=== PATIENT | male | born 1965 ===

== ENCOUNTER 2019-10-09 01:32 | Inpatient (IN) | payer BC ==
[2019-10-09] MEDS ORDERED: SODIUM CHLORIDE 0.9% 500 ML 500 ML IV ONE (01:58)
[2019-10-09] MEDS ORDERED: SODIUM CHLORIDE 0.9% 1,000 ML IV ONE (01:58)
[2019-10-09 02:04] LABS: Glucose,Whole Blood >600 mg/dL (75-99)
--- NOTE | 2019-10-09 02:07 | ED ---
General Adult HPI - General Chief complaint: Dizziness Stated complaint: Dizziness Time Seen by Provider: 10/09/19 01:48 Source: patient, family Limitations: no limitations - History of Present Illness Initial comments: 54-year-old male patient presents to the emergency department today for evaluation of dizziness. Patient states that for the last 3 weeks he has been persistently dizzy. States spells several times daily. States it is worse when he is at work. States that he has also been experiencing extremely dry mouth, frequent urination, and extreme thirst. Patient states that he has been feeling run down and more weak than usual. States is difficult to do his job. Patient states that he has not seen a physician for the last 30 years and does not take any medications. He denies any headache or recent head injury. Denies chest pain, shortness of breath, nausea, or vomiting. Denies numbness, tingling, weakness to his extremities. Does have a family history of diabetes. Patient denies any recent rash, fever, chills, diarrhea, constipation, back pain, hem aturia, dysuria, urinary urgency, or any other complaints. - Related Data Allergies Allergy/AdvReac Type Severity Reaction Status Date / Time No Known Allergies Allergy Verified 10/09/19 01:41 Review of Systems ROS Statement: Those systems with pertinent positive or pertinent negative responses have been documented in the HPI. ROS Other: All systems not noted in ROS Statement are negative. Past Medical History Past Medical History: No Reported History History of Any Multi-Drug Resistant Organisms: None Reported Past Surgical History: No Surgical Hx Reported Past Psychological History: No Psychological Hx Reported Smoking Status: Former smoker Past Alcohol Use History: Occasional Past Drug Use History: Marijuana General Exam Limitations: no limitations General appearance: alert, in no apparent distress, other (This is a well- developed, well-nourished adult male patient in no acute distress. Vital signs upon presentation are temperature 99.3F, pulse 119, respirations 20, blood pressure 152/97, pulse ox 99% on room air.) Eye exam: Present: normal appearance, PERRL, EOMI. Absent: scleral icterus, conjunctival injection, periorbital swelling ENT exam: Present: normal exam, normal oropharynx, mucous membranes moist Respiratory exam: Present: normal lung sounds bilaterally. Absent: respiratory distress, wheezes, rales, rhonchi, stridor Cardiovascular Exam: Present: normal rhythm, tachycardia, normal heart sounds. Absent: systolic murmur, diastolic murmur, rubs, gallop, clicks GI/Abdominal exam: Present: soft, normal bowel sounds. Absent: distended, tenderness, guarding, rebound, rigid Neurological exam: Present: alert, oriented X3, CN II-XII intact Expanded Speech: Present: fluid speech Cranial nerves: EOM's Intact: Normal Motor strength exam: RUE: 5, LUE: 5, RLE: 5, LLE: 5 Psychiatric exam: Present: normal affect, normal mood Skin exam: Present: warm, dry, intact, normal color. Absent: rash Course Vital Signs 10/09/19 01:36 Temperature 99.3 F Pulse Rate 119 H Respiratory 20 Rate Blood Pressure 152/97 O2 Sat by Pulse 99 Oximetry EKG Findings - EKG Comments: EKG Findings:: EKG obtained at 0159 shows sinus tachycardia at a ventricular rate of 117, IN interval 140, QRS duration 96, QT 338, QTC 471. No evidence of ST elevation or depression. Medical Decision Making - Medical Decision Making 54-year-old male patient presents to the emergency department today for evaluation of dizzy episodes, reports of increased thirst, frequent urination, and feeling generally rundown. Physical examination is unremarkable. He is neurologically intact with no focal deficits. Initial blood glucose reading was high on her monitor. Labs reviewed and did reveal elevated blood sugar at 758. Potassium and magnesium are normal. Patient was started on IV fluids. Will start insulin drip. He'll be admitted to the hospital for further evaluation and management of his new onset diabetes. - Lab Data Result diagrams: 10/09/19 02:13 10/09/19 02:13 Lab Results 10/09/19 10/09/19 10/09/19 Range/Units 02:01 02:13 02:13 WBC 9.8 (3.8-10.6) k/uL RBC 5.59 (4.30-5.90) m/uL Hgb 16.8 (13.0-17.5) gm/dL Hct 50.1 (39.0-53.0) % MCV 89.5 (80.0-100.0) fL MCH 30.1 (25.0-35.0) pg MCHC 33.6 (31.0-37.0) g/dL RDW 12.6 (11.5-15.5) % Plt Count 332 (150-450) k/uL Neutrophils % 65 % Lymphocytes % 25 % Monocytes % 6 % Eosinophils % 1 % Basophils % 1 % Neutrophils # 6.4 (1.3-7.7) k/uL Lymphocytes # 2.4 (1.0-4.8) k/uL Monocytes # 0.6 (0-1.0) k/uL Eosinophils # 0.1 (0-0.7) k/uL Basophils # 0.1 (0-0.2) k/uL Sodium 127 L (137-145) mmol/L Potassium 4.0 (3.5-5.1) mmol/L Chloride 90 L (98-107) mmol/L Carbon Dioxide 18 L (22-30) mmol/L Anion Gap 19 mmol/L BUN 14 (9-20) mg/dL Creatinine 0.89 (0.66-1.25) mg/dL Est GFR (CKD-EPI)AfAm >90 (>60 ml/min/1.73 sqM) Est GFR (CKD-EPI)NonAf >90 (>60 ml/min/1.73 sqM) Glucose 758 H* (74-99) mg/dL POC Glucose (mg/dL) >600 H (75-99) mg/dL POC Glu Adolescent Counselor ID Eliza Davidson Calcium 10.3 H (8.4-10.2) mg/dL Phosphorus 3.5 (2.5-4.5) mg/dL Magnesium 2.0 (1.6-2.3) mg/dL Total Bilirubin 1.7 H (0.2-1.3) mg/dL AST 29 (17-59) U/L ALT 43 (4-49) U/L Alkaline Phosphatase 217 H (38-126) U/L Troponin I (0.000-0.034) ng/mL Total Protein 7.3 (6.3-8.2) g/dL Albumin 4.4 (3.5-5.0) g/dL Acetone, Qual Positive (Negative) 10/09/19 Range/Units 02:13 WBC (3.8-10.6) k/uL RBC (4.30-5.90) m/uL Hgb (13.0-17.5) gm/dL Hct (39.0-53.0) % MCV (80.0-100.0) fL MCH (25.0-35.0) pg MCHC (31.0-37.0) g/dL RDW (11.5-15.5) % Plt Count (150-450) k/uL Neutrophils % % Lymphocytes % % Monocytes % % Eosinophils % % Basophils % % Neutrophils # (1.3-7.7) k/uL Lymphocytes # (1.0-4.8) k/uL Monocytes # (0-1.0) k/uL Eosinophils # (0-0.7) k/uL Basophils # (0-0.2) k/uL Sodium (137-145) mmol/L Potassium (3.5-5.1) mmol/L Chloride (98-107) mmol/L Carbon Dioxide (22-30) mmol/L Anion Gap mmol/L BUN (9-20) mg/dL Creatinine (0.66-1.25) mg/dL Est GFR (CKD-EPI)AfAm (>60 ml/min/1.73 sqM) Est GFR (CKD-EPI)NonAf (>60 ml/min/1.73 sqM) Glucose (74-99) mg/dL POC Glucose (mg/dL) (75-99) mg/dL POC Glu Adolescent Counselor ID Calcium (8.4-10.2) mg/dL Phosphorus (2.5-4.5) mg/dL Magnesium (1.6-2.3) mg/dL Total Bilirubin (0.2-1.3) mg/dL AST (17-59) U/L ALT (4-49) U/L Alkaline Phosphatase (38-126) U/L Troponin I <0.012 (0.000-0.034) ng/mL Total Protein (6.3-8.2) g/dL Albumin (3.5-5.0) g/dL Acetone, Qual (Negative) Disposition Clinical Impression: New onset type 2 diabetes mellitus, DKA (diabetic ketoacidoses) Disposition: ADMITTED IP TO THIS [facility] Condition: Serious Referrals: None,Stated [Primary Care Provider] - 1-2 days Decision to Admit Reason: Admit from EC Decision Date: 10/09/19 Decision Time: 03:07
[2019-10-09 02:20] LABS: Basophils # (A) 0.1 k/uL (0-0.2); Basophils % (A) 1 %; Eosinophils # (A) 0.1 k/uL (0-0.7); Eosinophils % (A) 1 %; HCT 50.1 % (39.0-53.0); HGB 16.8 gm/dL (13.0-17.5); Lymphocytes # (A) 2.4 k/uL (1.0-4.8); Lymphocytes % (A) 25 %; MCH 30.1 pg (25.0-35.0); MCHC 33.6 g/dL (31.0-37.0); MCV 89.5 fL (80.0-100.0); Mean Platelet Volume 7.6; Monocytes # (A) 0.6 k/uL (0-1.0); Monocytes % (A) 6 %; Neutrophils # (A) 6.4 k/uL (1.3-7.7); Neutrophils % (A) 65 %; Platelet Count 332 k/uL (150-450); RBC 5.59 m/uL (4.30-5.90); RDW 12.6 % (11.5-15.5); WBC 9.8 k/uL (3.8-10.6)
[2019-10-09 02:33] LABS: ALT 43 U/L (4-49); AST 29 U/L (17-59); African American GFR (CKD) >90 (>60 ml/min/1.73 sqM); Albumin 4.4 g/dL (3.5-5.0); Alkaline Phosphatase 217 U/L (38-126); Anion Gap 19 mmol/L; Blood Urea Nitrogen 14 mg/dL (9-20); Calcium 10.3 mg/dL (8.4-10.2); Carbon Dioxide 18 mmol/L (22-30); Chloride 90 mmol/L (98-107); Non-African American GFR(CKD) >90 (>60 ml/min/1.73 sqM); Phosphorus 3.5 mg/dL (2.5-4.5); Sodium 127 mmol/L (137-145); Total Bilirubin 1.7 mg/dL (0.2-1.3); Total Protein 7.3 g/dL (6.3-8.2)
[2019-10-09 02:48] LABS: Glucose 758 mg/dL (74-99)
[2019-10-09] MEDS ORDERED: INSULIN REGULAR BOLUS (FROM DRIP BAG) IV ONE (02:58)
[2019-10-09 03:22] LABS: Appearance,Urine Clear (Clear); Bilirubin,Urine Negative (Negative); Blood,Urine Negative (Negative); Color,Urine Yellow; Glucose,Urine (UA) 3+ (Negative); Ketones,Urine 2+ (Negative); Nitrite,Urine Negative (Negative); Protein,Urine Negative (Negative); Specific Gravity,Urine 1.005 (1.001-1.035); Urobilinogen,Urine <2.0 mg/dL (<2.0)
[2019-10-09 03:26] LABS: Leukocyte Esterase,Urine Negative (Negative)
[2019-10-09 03:27] LABS: Glucose,Whole Blood >600 mg/dL (75-99)
[2019-10-09] MEDS: SODIUM CHLORIDE 0.9% 1,000 ML IV SCH ×4 (03:39→17:10)
[2019-10-09] MEDS: INSULIN REGULAR 100 UNIT in SODIUM CHLORIDE 0.9% 100 ML IV SCH ×2 (03:40→15:57)
[2019-10-09 04:02] LABS: Glucose,Whole Blood 544 mg/dL (75-99)
[2019-10-09 04:13] LABS: Glucose,Whole Blood 484 mg/dL (75-99)
[2019-10-09 04:49] LABS: African American GFR (CKD) >90 (>60 ml/min/1.73 sqM); Anion Gap 11 mmol/L; Blood Urea Nitrogen 13 mg/dL (9-20); Carbon Dioxide 22 mmol/L (22-30); Chloride 100 mmol/L (98-107); Glucose 484 mg/dL (74-99); Non-African American GFR(CKD) >90 (>60 ml/min/1.73 sqM); Phosphorus 3.3 mg/dL (2.5-4.5); Potassium 3.8 mmol/L (3.5-5.1); Sodium 133 mmol/L (137-145)
[2019-10-09 05:10] LABS: Glucose,Whole Blood 382 mg/dL (75-99)
[2019-10-09 06:09] LABS: Glucose,Whole Blood 326 mg/dL (75-99)
[2019-10-09 07:04] LABS: Glucose,Whole Blood 241 mg/dL (75-99)
[2019-10-09] MEDS: D5-0.45% NACL WITH KCL 20MEQ/L 1,000 ML IV SCH ×2 (07:10→15:57)
[2019-10-09 08:49] LABS: Glucose,Whole Blood 203 mg/dL (75-99)
[2019-10-09 08:53] LABS: African American GFR (CKD) >90 (>60 ml/min/1.73 sqM); Anion Gap 7 mmol/L; Blood Urea Nitrogen 12 mg/dL (9-20); Carbon Dioxide 24 mmol/L (22-30); Chloride 107 mmol/L (98-107); Glucose 164 mg/dL (74-99); Non-African American GFR(CKD) >90 (>60 ml/min/1.73 sqM); Potassium 3.4 mmol/L (3.5-5.1); Sodium 138 mmol/L (137-145)
[2019-10-09] MEDS ORDERED: FAMOTIDINE 20 MG/2 ML VIAL IV SCH (09:00)
--- NOTE | 2019-10-09 09:13 | P.HPIM ---
History of Present Illness This is a pleasant 54 years old male with no significant past medical history. Presents because of dizziness for 2-3 weeks, patient also passed out at his work about 2 weeks ago Associated with polyuria, polydipsia and dry mouth. However patient denies chest pain or dyspnea. No abdominal pain. No nausea vomiting. No change in bowel habits. No fever He does not follow up with primary care doctor, he is supposed to follow-up with a new primary care doctor this week however he came to the hospital He denies smoking or alcohol or drugs, he quit smoking marijuana about 2 months ago Patient is tachycardic, heart rate is 101-118, rest of vitals are stable. On admission his anion gap was elevated at 19, it came down to 7. Sugar was more than 600 on admission currently 203. Personal BMP is unremarkable, liver enzymes not elevated, troponin less than 0.012. CBC is unremarkable. Urinalysis doesn't show infection. Acetone is positive. EKG shows sinus tachycardia at [address]-T changes, Patient was admitted to the ICU with insulin drip per protocol, also has a normal saline at 200 mL per hour Review of Systems CONSTITUTIONAL: No fever, no malaise, no fatigue. HEENT: No recent visual problems or hearing problems. Denied any sore throat. CARDIOVASCULAR: No orthopnea, PND, no palpitations, no syncope. PULMONARY: No shortness of breath, no cough, no hemoptysis. GASTROINTESTINAL: No diarrhea, no nausea, no vomiting, no abdominal pain. Normoactive bowel sounds. NEUROLOGICAL: No headaches, no weakness, no numbness. HEMATOLOGICAL: Denies any bleeding or petechiae. GENITOURINARY: Denies any burning micturition, frequency, or urgency. MUSCULOSKELETAL/RHEUMATOLOGICAL: Denies any joint pain, swelling, or any muscle pain. ENDOCRINE: Denies any polyuria or polydipsia. Past Medical History Past Medical History: No Reported History History of Any Multi-Drug Resistant Organisms: None Reported Past Surgical History: No Surgical Hx Reported Past Anesthesia/Blood Transfusion Reactions: No Reported Reaction Past Psychological History: No Psychological Hx Reported Smoking Status: Former smoker Past Alcohol Use History: Occasional Past Drug Use History: Marijuana Medications and Allergies Home Medications Medication Instructions Recorded Confirmed Type Ibuprofen [Advil] 400 mg PO Q8HR PRN 10/09/19 10/09/19 History Multivitamins, Thera [Multivitamin 1 tab PO DAILY 10/09/19 10/09/19 History (formulary)] Tetrahydrozoline 0.05% Ophth 1 drop BOTH EYES QID PRN 10/09/19 10/09/19 History [Visine Eye Drops] Allergies Allergy/AdvReac Type Severity Reaction Status Date / Time tuberculin,PPD,multi-puncture AdvReac ARM Verified 10/09/19 08:36 SWELLING Physical Exam Vitals: Vital Signs Temp Pulse Resp BP Pulse Ox 10/09/19 08:00 98.3 F 101 H 15 125/86 95 10/09/19 07:00 113 H 17 96 10/09/19 06:30 114 H 14 96 10/09/19 06:00 116 H 16 125/86 96 10/09/19 05:30 118 H 20 97 10/09/19 05:00 126 H 11 L 145/103 96 10/09/19 04:30 98.5 F 126 H 19 145/102 97 10/09/19 04:14 124 H 19 10/09/19 03:50 116 H 20 131/94 99 10/09/19 02:35 110 H 19 134/95 98 10/09/19 01:36 99.3 F 119 H 20 152/97 99 Intake and Output 10/08/19 10/09/19 10/09/19 22:59 06:59 14:59 Intake Total 400 34.803 Balance 400 34.803 Intake: Intake, IV Titration 400 34.803 Amount Insulin Regular 100 unit 34.803 In Sodium Chloride 0.9% 100 ml @ 0.1 UNITS/KG/HR 9.85 mls/hr IV .[id number] [facility] Rx#:[id number] Sodium Chloride 0.9% 1, 400 000 ml @ 200 mls/hr IV . Q5H [facility] Rx#:[id number] Other: Voiding Method Toilet Urinal # Voids 1 Weight 97.522 kg GENERAL: The patient is alert and oriented x3, not in any acute distress. Well developed, well nourished. HEENT: Pupils are round and equally reacting to light. EOMI. No scleral icterus. No conjunctival pallor. Normocephalic, atraumatic. No pharyngeal erythema. No thyromegaly. CARDIOVASCULAR: S1 and S2 present. No murmurs, rubs, or gallops. PULMONARY: Chest is clear to auscultation, no wheezing or crackles. ABDOMEN: Soft, nontender, nondistended, normoactive bowel sounds. No palpable organomegaly. MUSCULOSKELETAL: No joint swelling or deformity. EXTREMITIES: No cyanosis, clubbing, or pedal edema. NEUROLOGICAL: Gross neurological examination did not reveal any focal deficits. SKIN: No rashes. No petechiae Results CBC & Chem 7: 10/09/19 02:13 10/09/19 08:22 Labs: Abnormal Lab Results - Last 24 Hours (Table) 10/09/19 10/09/19 10/09/19 Range/Units 02:01 02:13 03:24 Sodium 127 L (137-145) mmol/L Potassium (3.5-5.1) mmol/L Chloride 90 L (98-107) mmol/L Carbon Dioxide 18 L (22-30) mmol/L Glucose 758 H* (74-99) mg/dL POC Glucose (mg/dL) >600 H >600 H (75-99) mg/dL Calcium 10.3 H (8.4-10.2) mg/dL Phosphorus (2.5-4.5) mg/dL Total Bilirubin 1.7 H (0.2-1.3) mg/dL Alkaline Phosphatase 217 H (38-126) U/L 10/09/19 10/09/19 10/09/19 Range/Units 03:58 04:12 04:21 Sodium 133 L (137-145) mmol/L Potassium (3.5-5.1) mmol/L Chloride (98-107) mmol/L Carbon Dioxide (22-30) mmol/L Glucose 484 H (74-99) mg/dL POC Glucose (mg/dL) 544 H 484 H (75-99) mg/dL Calcium (8.4-10.2) mg/dL Phosphorus (2.5-4.5) mg/dL Total Bilirubin (0.2-1.3) mg/dL Alkaline Phosphatase (38-126) U/L 10/09/19 10/09/19 10/09/19 Range/Units 05:08 06:07 07:03 Sodium (137-145) mmol/L Potassium (3.5-5.1) mmol/L Chloride (98-107) mmol/L Carbon Dioxide (22-30) mmol/L Glucose (74-99) mg/dL POC Glucose (mg/dL) 382 H 326 H 241 H (75-99) mg/dL Calcium (8.4-10.2) mg/dL Phosphorus (2.5-4.5) mg/dL Total Bilirubin (0.2-1.3) mg/dL Alkaline Phosphatase (38-126) U/L 10/09/19 10/09/19 10/09/19 Range/Units 08:22 08:22 08:48 Sodium (137-145) mmol/L Potassium 3.4 L (3.5-5.1) mmol/L Chloride (98-107) mmol/L Carbon Dioxide (22-30) mmol/L Glucose 164 H (74-99) mg/dL POC Glucose (mg/dL) 203 H (75-99) mg/dL Calcium (8.4-10.2) mg/dL Phosphorus 2.4 L (2.5-4.5) mg/dL Total Bilirubin (0.2-1.3) mg/dL Alkaline Phosphatase (38-126) U/L Thrombosis Risk Factor Assmnt - Choose All That Apply Any of the Below Risk Factors Present?: Yes Each Factor Represents 1 point: Age 41-60 years, Obesity (BMI >25) Thrombosis Risk Factor Assessment Total Risk Factor Score: 2 Thrombosis Risk Factor Assessment Level: Low Risk Assessment and Plan Assessment: Diabetic ketoacidosis New-onset diabetes mellitus Obesity with BMI of 35 Plan: this is a pleasant 54 years old male who presents with a new-onset diabetes. Continue with insulin drip as per protocol and switched to subcutaneous insulin. Continue with IV hydration. Check hemoglobin A1c. Diabetes education. Special Weapons Unit Officer consult . dairy farm worker consult Labs and medication were reviewed.. Continue same treatment. Continue with symptomatic treatment. Resume home medication. Monitor lytes and vitals. DVT and GI prophylaxis. Further recommendations of the clinical course of the patient DVT prophylaxis: Subcutaneous heparin GI Prophylaxis: Pepcid
[2019-10-09 10:22] LABS: Glucose,Whole Blood 119 mg/dL (75-99)
[2019-10-09] MEDS: HEPARIN SODIUM,PORCINE 5,000 UNIT/ML 1 ML VIAL SQ SCH ×2 (10:26→20:52)
[2019-10-09 11:54] LABS: Glucose,Whole Blood 112 mg/dL (75-99)
[2019-10-09 13:00] LABS: Glucose,Whole Blood 146 mg/dL (75-99)
[2019-10-09 16:52] LABS: Glucose,Whole Blood 247 mg/dL (75-99)
[2019-10-09] MEDS: INSULIN ASPART (NovoLOG) 100 UNIT/ML VIAL SQ SCH ×3 (17:09→21:00)
[2019-10-09] MEDS ORDERED: TETRAHYDROZOLINE 0.05% OPHTH DROPS 15 ML BTL BOTH EYES PRN (20:24)
[2019-10-09] MEDS: FAMOTIDINE 20 MG TAB PO SCH (20:52)
[2019-10-09 20:57] LABS: Glucose,Whole Blood 222 mg/dL (75-99)
[2019-10-09] MEDS ORDERED: INSULIN DETEMIR (LEVEMIR) 100 UNIT/ML SYR SQ SCH (21:00)
[2019-10-10 04:52] LABS: Basophils % (A) 1 %; Eosinophils # (A) 0.4 k/uL (0-0.7); Eosinophils % (A) 5 %; HCT 42.6 % (39.0-53.0); HGB 14.1 gm/dL (13.0-17.5); Lymphocytes # (A) 3.5 k/uL (1.0-4.8); Lymphocytes % (A) 46 %; MCH 29.9 pg (25.0-35.0); MCHC 33.1 g/dL (31.0-37.0); MCV 90.1 fL (80.0-100.0); Mean Platelet Volume 7.1; Monocytes # (A) 0.4 k/uL (0-1.0); Monocytes % (A) 5 %; Neutrophils # (A) 3.1 k/uL (1.3-7.7); Neutrophils % (A) 40 %; Platelet Count 264 k/uL (150-450); RBC 4.72 m/uL (4.30-5.90); RDW 12.9 % (11.5-15.5); WBC 7.6 k/uL (3.8-10.6)
[2019-10-10 05:05] LABS: African American GFR (CKD) >90 (>60 ml/min/1.73 sqM); Anion Gap 5 mmol/L; Blood Urea Nitrogen 10 mg/dL (9-20); Calcium 8.4 mg/dL (8.4-10.2); Carbon Dioxide 23 mmol/L (22-30); Chloride 105 mmol/L (98-107); Glucose 214 mg/dL (74-99); Non-African American GFR(CKD) >90 (>60 ml/min/1.73 sqM); Potassium 3.7 mmol/L (3.5-5.1); Sodium 133 mmol/L (137-145)
[2019-10-10 05:06] LABS: Hemoglobin A1C 14.2 % (4.0-6.0)
[2019-10-10 06:55] LABS: Glucose,Whole Blood 253 mg/dL (75-99)
[2019-10-10] MEDS: INSULIN ASPART (NovoLOG) 100 UNIT/ML VIAL SQ SCH ×7 (06:58→20:44)
[2019-10-10] MEDS: D5-0.45% NACL WITH KCL 20MEQ/L 1,000 ML IV SCH ×2 (07:02→09:16)
[2019-10-10] MEDS: SODIUM CHLORIDE 0.9% 1,000 ML IV SCH ×2 (09:15→09:16)
[2019-10-10] MEDS: HEPARIN SODIUM,PORCINE 5,000 UNIT/ML 1 ML VIAL SQ SCH ×2 (09:21→20:45)
[2019-10-10] MEDS: FAMOTIDINE 20 MG TAB PO SCH ×2 (09:21→20:45)
[2019-10-10 11:50] LABS: Glucose,Whole Blood 239 mg/dL (75-99)
[2019-10-10 17:08] LABS: Glucose,Whole Blood 260 mg/dL (75-99)
--- NOTE | 2019-10-10 19:09 | P.PN ---
Subjective This is a pleasant 54 years old male with no significant past medical history. Presents because of dizziness for 2-3 weeks, patient also passed out at his work about 2 weeks ago Associated with polyuria, polydipsia and dry mouth. However patient denies chest pain or dyspnea. No abdominal pain. No nausea vomiting. No change in bowel habits. No fever He does not follow up with primary care doctor, he is supposed to follow-up with a new primary care doctor this week however he came to the hospital He denies smoking or alcohol or drugs, he quit smoking marijuana about 2 months ago Patient is tachycardic, heart rate is 101-118, rest of vitals are stable. On admission his anion gap was elevated at 19, it came down to 7. Sugar was more than 600 on admission currently 203. Personal BMP is unremarkable, liver enzymes not elevated, troponin less than 0.012. CBC is unremarkable. Urinalysis doesn't show infection. Acetone is positive. EKG shows sinus tachycardia at [address]-T changes, Patient was admitted to the ICU with insulin drip per protocol, also has a normal saline at 200 mL per hour 10/10/2019 Patient remains in the ICU for close monitoring, glucose is better supposed along the 5 sites more than 200, patient was started on Lantus 10 units at bedtime with 5 units 3 times a day, we will increase his Lantus to 25 units at bedtime. Patient told me he injected himself with insulin and is willing to continue with insulin for now and he will follow-up with PCP and billing coordinator as an outpatient. Other than that patient denies any other symptoms no chest pain or dyspnea, no abdominal pain, no nausea vomiting and patient is tolerating diet well. No fever Vitals and labs are stable hemoglobin A1c.14.2 % Patient keep improvement possible discharge in 24-48 hours Patient Transferred out of the ICU for now Review of systems CONSTITUTIONAL: No fever, no malaise, no fatigue. HEENT: No recent visual problems or hearing problems. Denied any sore throat. CARDIOVASCULAR: No orthopnea, PND, no palpitations, no syncope. PULMONARY: No shortness of breath, no cough, no hemoptysis. GASTROINTESTINAL: No diarrhea, no nausea, no vomiting, no abdominal pain. Normoactive bowel sounds. NEUROLOGICAL: No headaches, no weakness, no numbness. HEMATOLOGICAL: Denies any bleeding or petechiae. GENITOURINARY: Denies any burning micturition, frequency, or urgency. MUSCULOSKELETAL/RHEUMATOLOGICAL: Denies any joint pain, swelling, or any muscle pain. ENDOCRINE: Denies any polyuria or polydipsia. Active Medications Generic Name Dose Route Start Last Admin Trade Name Freq PRN Reason Stop Dose Admin Famotidine 20 mg 10/09/19 21:00 10/10/19 09:21 Pepcid PO 20 mg Q12HR [facility] Administration Heparin Sodium (Porcine) 5,000 unit 10/09/19 09:00 10/10/19 09:21 Heparin SQ 5,000 unit Q12HR [facility] Administration Insulin Aspart 5 unit 10/09/19 17:30 10/10/19 17:36 Novolog SQ 5 unit AC-TID [facility] Administration Insulin Aspart 0 unit 10/09/19 17:30 10/10/19 17:37 Novolog SQ 6 unit ACHS [facility] Administration Protocol Insulin Detemir 25 unit 10/10/19 21:00 Levemir SQ HS [facility] Tetrahydrozoline HCl 1 drops 10/09/19 20:24 Visine Eye Drops BOTH EYES QID PRN DRY EYES Objective - Vital Signs Vital signs: Vital Signs Temp 98.4 F 10/10/19 16:00 Pulse 91 10/10/19 16:00 Resp 14 10/10/19 16:00 BP 106/81 10/10/19 16:00 Pulse Ox 95 10/10/19 16:00 Intake & Output 10/10/19 10/10/19 10/11/19 06:59 18:59 06:59 Intake Total 500 Balance 500 Intake: Intake, IV Titration 500 Amount D5-0.45% NaCl with KCl 400 20Meq/l 1,000 ml @ 150 mls/hr IV .[id number] [facility] Rx# :[id number] Sodium Chloride 0.9% 1, 100 000 ml @ 200 mls/hr IV . Q5H [facility] Rx#:[id number] Other: Voiding Method Toilet Toilet # Voids 1 1 - Labs CBC & Chem 7: 10/10/19 03:52 10/10/19 03:52 Labs: Abnormal Lab Results - Last 24 Hours (Table) 10/09/19 10/09/19 10/10/19 Range/Units 02:13 20:56 03:52 Sodium 133 L (137-145) mmol/L Creatinine 0.58 L (0.66-1.25) mg/dL Glucose 214 H (74-99) mg/dL POC Glucose (mg/dL) 222 H (75-99) mg/dL Hemoglobin A1c 14.2 H (4.0-6.0) % 10/10/19 10/10/19 10/10/19 Range/Units 06:53 11:49 17:07 Sodium (137-145) mmol/L Creatinine (0.66-1.25) mg/dL Glucose (74-99) mg/dL POC Glucose (mg/dL) 253 H 239 H 260 H (75-99) mg/dL Hemoglobin A1c (4.0-6.0) % Assessment and Plan Assessment: Diabetic ketoacidosis, resolved New-onset diabetes mellitus with hyperglycemia Obesity with BMI of 35 Plan: this is a pleasant 54 years old male who presents with a new-onset diabetes. Continue with insulin drip as per protocol and switched to subcutaneous insulin. Stop IV hydration. Diabetes education. Agricultural Research Director consult . lead supply worker consult Labs and medication were reviewed.. Continue same treatment. Continue with symptomatic treatment. Resume home medication. Monitor lytes and vitals. DVT and GI prophylaxis. Further recommendations of the clinical course of the patient DVT prophylaxis: Subcutaneous heparin GI Prophylaxis: Pepcid
[2019-10-10 20:37] LABS: Glucose,Whole Blood 262 mg/dL (75-99)
[2019-10-10] MEDS: INSULIN DETEMIR (LEVEMIR) 100 UNIT/ML SYR SQ SCH (20:46)
[2019-10-10] MEDS ORDERED: INSULIN DETEMIR (LEVEMIR) 100 UNIT/ML SYR SQ SCH (21:00)
[2019-10-11 01:46] LABS: Glucose,Whole Blood 108 mg/dL (75-99)
[2019-10-11 06:58] LABS: Glucose,Whole Blood 159 mg/dL (75-99)
[2019-10-11] MEDS: INSULIN ASPART (NovoLOG) 100 UNIT/ML VIAL SQ SCH ×7 (07:03→21:48)
[2019-10-11] MEDS: FAMOTIDINE 20 MG TAB PO SCH ×2 (08:42→21:48)
[2019-10-11] MEDS: HEPARIN SODIUM,PORCINE 5,000 UNIT/ML 1 ML VIAL SQ SCH ×2 (08:43→21:47)
[2019-10-11 11:43] LABS: Glucose,Whole Blood 239 mg/dL (75-99)
[2019-10-11 15:09] VITALS: BMI 37.0
[2019-10-11 16:45] LABS: Glucose,Whole Blood 206 mg/dL (75-99)
[2019-10-11 17:25] VITALS: PULSE 73
--- NOTE | 2019-10-11 19:12 | P.PN ---
Subjective This is a pleasant 54 years old male with no significant past medical history. Presents because of dizziness for 2-3 weeks, patient also passed out at his work about 2 weeks ago Associated with polyuria, polydipsia and dry mouth. However patient denies chest pain or dyspnea. No abdominal pain. No nausea vomiting. No change in bowel habits. No fever He does not follow up with primary care doctor, he is supposed to follow-up with a new primary care doctor this week however he came to the hospital He denies smoking or alcohol or drugs, he quit smoking marijuana about 2 months ago Patient is tachycardic, heart rate is 101-118, rest of vitals are stable. On admission his anion gap was elevated at 19, it came down to 7. Sugar was more than 600 on admission currently 203. Personal BMP is unremarkable, liver enzymes not elevated, troponin less than 0.012. CBC is unremarkable. Urinalysis doesn't show infection. Acetone is positive. EKG shows sinus tachycardia at [address]-T changes, Patient was admitted to the ICU with insulin drip per protocol, also has a normal saline at 200 mL per hour 10/10/2019 Patient remains in the ICU for close monitoring, glucose is better supposed along the 5 sites more than 200, patient was started on Lantus 10 units at bedtime with 5 units 3 times a day, we will increase his Lantus to 25 units at bedtime. Patient told me he injected himself with insulin and is willing to continue with insulin for now and he will follow-up with PCP and automated manufacturing instructor as an outpatient. Other than that patient denies any other symptoms no chest pain or dyspnea, no abdominal pain, no nausea vomiting and patient is tolerating diet well. No fever Vitals and labs are stable hemoglobin A1c.14.2 % Patient keep improvement possible discharge in 24-48 hours Patient Transferred out of the ICU for now 10/11/2019 Patient remains asymptomatic, however his sugar still fluctuation it was close to 100 or slightly above the morning 1-240 in the afternoon, his Levemir was increased to 25 units last night and today we increase his short-acting insulin with meals from 5 up to 10 units with meals. We'll keep monitoring her sugar closely Patient is counseled extensively about the need to recheck his sugar 4 times a day, about the signs symptoms of hypoglycemia, and instructed to come to e mergency room if his sugars less than 70 or more than 400, also is counseled about the importance of follow-up as an outpatient and he verbalized understanding and acceptance. Patient also showed interest in the reading materials and regarding his diabetes. Patient is counseled to lose weight and he agrees. Patient can be transferred out of the ICU to the general medical floor and possible discharge in 24-48 hours and patient agrees Objective - Vital Signs Vital signs: Vital Signs Temp 98.9 F 10/11/19 16:00 Pulse 73 10/11/19 16:00 Resp 17 10/11/19 16:00 BP 132/105 10/11/19 16:00 Pulse Ox 97 10/11/19 16:00 Intake & Output 10/10/19 10/11/19 10/11/19 18:59 06:59 18:59 Intake Total 350 Balance 350 Weight 100.9 kg 100.9 kg Intake: Oral 350 Other: Voiding Method Toilet Toilet Toilet # Voids 1 0 1 - Exam GENERAL: The patient is alert and oriented x3, not in any acute distress. Well developed, well nourished. HEENT: Pupils are round and equally reacting to light. EOMI. No scleral icterus. No conjunctival pallor. Normocephalic, atraumatic. No pharyngeal erythema. No thyromegaly. CARDIOVASCULAR: S1 and S2 present. No murmurs, rubs, or gallops. PULMONARY: Chest is clear to auscultation, no wheezing or crackles. ABDOMEN: Soft, nontender, nondistended, normoactive bowel sounds. No palpable organomegaly. MUSCULOSKELETAL: No joint swelling or deformity. EXTREMITIES: No cyanosis, clubbing, or pedal edema. NEUROLOGICAL: Gross neurological examination did not reveal any focal deficits. SKIN: No rashes. no petechiae. - Labs CBC & Chem 7: 10/10/19 03:52 10/10/19 03:52 Labs: Abnormal Lab Results - Last 24 Hours (Table) 10/10/19 10/11/19 10/11/19 Range/Units 20:35 01:43 06:56 POC Glucose (mg/dL) 262 H 108 H 159 H (75-99) mg/dL 10/11/19 10/11/19 Range/Units 11:42 16:43 POC Glucose (mg/dL) 239 H 206 H (75-99) mg/dL Assessment and Plan Assessment: Diabetic ketoacidosis, resolved New-onset diabetes mellitus with hyperglycemia Obesity with BMI of 35 Plan: this is a pleasant 54 years old male who presents with a new-onset diabetes. Continue with Levemir 25 units increased NovoLog 10 units with meals continue with insulin sliding scale and monitor her glucose. Diabetes education. Pesticide Use Medical Coordinator consult . tiller worker consult Labs and medication were reviewed.. Continue same treatment. Continue with symptomatic treatment. Resume home medication. Monitor lytes and vitals. DVT and GI prophylaxis. Further recommendations of the clinical course of the patient DVT prophylaxis: Subcutaneous heparin GI Prophylaxis: Pepcid Possible discharge in 24-48 hours
[2019-10-11 21:38] LABS: Glucose,Whole Blood 164 mg/dL (75-99)
[2019-10-11] MEDS: INSULIN DETEMIR (LEVEMIR) 100 UNIT/ML SYR SQ SCH (21:49)
[2019-10-12 06:50] LABS: Glucose,Whole Blood 116 mg/dL (75-99)
[2019-10-12 07:12] VITALS: BP 117/82; RESP 18; TEMP 97.9
[2019-10-12] MEDS: INSULIN ASPART (NovoLOG) 100 UNIT/ML VIAL SQ SCH ×4 (07:12→12:19)
[2019-10-12] MEDS: FAMOTIDINE 20 MG TAB PO SCH (08:16)
[2019-10-12] MEDS: HEPARIN SODIUM,PORCINE 5,000 UNIT/ML 1 ML VIAL SQ SCH (08:16)
[2019-10-12 12:02] LABS: Glucose,Whole Blood 173 mg/dL (75-99)
--- NOTE | 2019-10-13 00:14 | P.DS ---
Providers Date of admission: 10/09/19 03:06 Attending physician: Erika Jorge Primary care physician: Jamie Santana Hospital Course: Diagnoses: Diabetic ketoacidosis, resolved New-onset diabetes mellitus with hyperglycemia Obesity with BMI of 35 Hospital course: This is a pleasant 54 years old male with no significant past medical history. Presents because of dizziness for 2-3 weeks, patient also passed out at his work about 2 weeks ago Associated with polyuria, polydipsia and dry mouth. Patient found to have DKA, he was admitted to the ICU penetrated with insulin drip per protocol, his anion gap closed and his symptoms improved and he is back to his normal self. Patient denies any symptoms or complaints for the last 48 hours prior to discharge. Patient is informed and he has diagnosis of diabetes. He is informed to his hemoglobin A1c is 14% and he needs to be and insulin and he agrees. He'll be discharged on 25 units of Levemir at bedtime and 10 units of short-acting insulin with meals. Sugar was controlled. Glucometer is provided for him at bedside. Patient was instructed extensively and educated about diabetes, checking his sugar 4 times a day, hypo-and hyperglycemia diagnoses and management. Problems and management plan were discussed with the patient and he verbalized understanding and acceptance Patient was found stable and can be discharged home however he needs follow-up as an outpatient. Patient was instructed to follow up with PCP within one week and patient agrees. Patient told me he will call Dr. Wheeler by himself to be his new PCP and Dr. 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 Patient Condition at Discharge: Serious Plan - Discharge Summary Discharge Rx Participant: Yes New Discharge Prescriptions: New Insulin Detemir (Levemir) [Levemir] 25 unit SQ HS #1 vial INSULIN ASPART (NovoLOG) [NovoLOG (formulary)] 10 unit SQ AC-TID #1 vial Continue Tetrahydrozoline 0.05% Ophth [Visine Eye Drops] 1 drop BOTH EYES QID PRN PRN Reason: DRY EYES Multivitamins, Thera [Multivitamin (formulary)] 1 tab PO DAILY Discontinued Ibuprofen [Advil] 400 mg PO Q8HR PRN PRN Reason: Pain Discharge Medication List Multivitamins, Thera [Multivitamin (formulary)] 1 tab PO DAILY 08/18/20 [History] Tetrahydrozoline 0.05% Ophth [Visine Eye Drops] 1 drop BOTH EYES QID PRN 10/09/19 [History] INSULIN ASPART (NovoLOG) [NovoLOG (formulary)] 10 unit SQ AC-TID #1 vial 10/12/19 [Rx] Insulin Detemir (Levemir) [Levemir] 25 unit SQ HS #1 vial 10/12/19 [Rx] Follow up Appointment(s)/Referral(s): Rohan Bill MD [REFERRING] - 10 Days (please call for appointment) Boris Miller MD [REFERRING] - 1 Week (endocrinoloigst) [facility] [NON-STAFF] - As Needed Patient Instructions/Handouts: Insulin Detemir (By injection), How to Give a Subcutaneous Injection (DC) Activity/Diet/Wound Care/Special Instructions: low carbohydrate diet activity as tolerated Discharge Disposition: HOME SELF-CARE
--- NOTE | 2019-10-14 16:51 | CDI ---
Documentation Clarification Form Date: 10/14/19 From: Anabell Gomes Phone: If you have a question about this query, please contact Tiff Tavarez Coordinator Of Rehabilitation Services at [phone] between 8am and 5pm. Admit Date: 10/09/19 Discharge Date:10/12/19 Patient Name: Juanito Joe Visit Number: [id number] ATTENTION: The Clinical Documentation Specialists (CDI) and [facility] Coding Staff appreciate your assistance in clarifying documentation. Please respond to the clarification below the line at the bottom and electronically sign. The CDI & [facility] Coding staff will review the response and follow-up if needed. Please note: Queries are made part of the Legal Health Record. If you have any questions, please contact the author of this message via ITS. Dear Dr. Castellanos Documentation states: New onset DM with DKA. H&P has documentation of sodium of 127. History/Risk Factors: DKA Clinical indicators: low sodium Abnormal Lab: Sodium of 127 on admit Treatment: Sodium chloride 2 Liter fluid bolus then at 200 mls/hr Clinical significance of diagnostic testing and treatment CANNOT be assumed or coded without physician documentation of significance if any. Please clarify what abnormal laboratory signifies: Disease process, please specify Abnormal Lab Value Unable to determine Other, please specify false low sodium level due to high glucose in blood , glucose was more than 700 MTDD
== END 2019-10-12 13:07 | disposition home or self-care (01) | DRG 639 ==
LOC: EC 01:32 → 2SICU 03:06
PROVIDERS: ADMIT Hospitalist; ATTEND Hospitalist
DX: E11.10 Type 2 diabetes mellitus with ketoacidosis without coma (principal); E66.9 Obesity, unspecified; Z68.35 Body mass index [BMI] 35.0-35.9, adult; Z87.891 Personal history of nicotine dependence; Z88.8 Allergy status to other drugs, medicaments and biological substances; Z83.3 Family history of diabetes mellitus
CPT/HCPCS: 36415; 80048; 80051; 80053; 81003; 82009; 82565; 82947; 83036; 83735; 84100; 84484; 84520; 85025; 93005; 96360; 96372; 99285

== ENCOUNTER 2022-08-30 12:07 | Observation (INO) | payer BC ==
[2022-08-30] MEDS ORDERED: ONDANSETRON 4 MG/2 ML VIAL IVP STA (12:33)
[2022-08-30] MEDS ORDERED: PANTOPRAZOLE 40 MG/10 ML VIAL IVP STA (12:33)
[2022-08-30] MEDS ORDERED: SODIUM CHLORIDE 0.9% 1,000 ML IV STA (12:33)
[2022-08-30] MEDS ORDERED: HYDROmorphone 1 MG/ML 1 ML SYRINGE IVP STA (12:34)
--- NOTE | 2022-08-30 12:38 | ED ---
Abdominal Pain HPI - General Chief Complaint: Abdominal Pain Stated Complaint: abd pain Time Seen by Provider: 08/30/22 12:18 Source: patient Mode of arrival: ambulatory Limitations: no limitations - History of Present Illness Initial Comments: 57-year-old male with past medical history of diabetes who presents emergency room reporting diffuse abdominal pain. Pain started just prior to hospital arrival. 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 Located in the right upper quadrant but generalized radiation to the whole abd omen. States he has chills and nausea without vomiting. No changes in his bowel or bladder habits. No fevers. Admits pain is similar from when he had abdominal pain in March and was hospitalized for his symptoms. En route to the hospital the patient was given 100 mics of fentanyl and 4 mg of Zofran. States that he was recently placed on Motrin 800s for carpal tunnel in his hands and was also given a steroid shot. No other medication changes. Does admit to occasionally drinking alcohol. No other alleviating, precipitating or modifying factors - Related Data Home Medications Medication Instructions Recorded Confirmed lisinopriL [Zestril] 5 mg PO DAILY 04/10/22 08/30/22 metFORMIN HCL [Glucophage] 500 mg PO DAILY 04/10/22 08/30/22 Ibuprofen [Motrin] 800 mg PO BID PRN 08/30/22 08/30/22 Previous Rx's Medication Instructions Recorded Acetaminophen Tab [Tylenol Tab] 650 mg PO Q4H PRN #30 tablet 09/02/22 Levofloxacin [Levaquin] 500 mg PO DAILY 10 Days #10 tab 09/02/22 metroNIDAZOLE [Flagyl] 500 mg PO TID 10 Days #30 tab 09/02/22 oxyCODONE HCL [OxyIR] 5 mg PO Q6H PRN 3 Days #12 tab 09/02/22 Allergies Allergy/AdvReac Type Severity Reaction Status Date / Time tuberculin,PPD,multi-puncture Allergy ARM Verified 08/30/22 15:41 SWELLING Review of Systems ROS Statement: Those systems with pertinent positive or pertinent negative responses have been documented in the HPI. ROS Other: All systems not noted in ROS Statement are negative. Past Medical History Past Medical History: No Reported History, Diabetes Mellitus History of Any Multi-Drug Resistant Organisms: None Reported Past Surgical History: No Surgical Hx Reported Past Anesthesia/Blood Transfusion Reactions: No Reported Reaction Past Psychological History: No Psychological Hx Reported Smoking Status: Former smoker Past Alcohol Use History: Occasional Past Drug Use History: Marijuana - Past Family History Mother Family Medical History: Diabetes Mellitus, Hypertension Father Family Medical History: Hypertension Sister(s) Family Medical History: No Reported History General Exam Limitations: no limitations General appearance: alert, in no apparent distress Head exam: Present: atraumatic, normocephalic, normal inspection Eye exam: Present: normal appearance, PERRL, EOMI. Absent: scleral icterus, conjunctival injection, periorbital swelling ENT exam: Present: normal exam, mucous membranes moist Neck exam: Present: normal inspection. Absent: tenderness, meningismus, lymphadenopathy Respiratory exam: Present: normal lung sounds bilaterally. Absent: respiratory distress, wheezes, rales, rhonchi, stridor Cardiovascular Exam: Present: regular rate, normal rhythm, normal heart sounds. Absent: systolic murmur, diastolic murmur, rubs, gallop, clicks GI/Abdominal exam: Present: soft, tenderness (Right upper quadrant), normal bowel sounds. Absent: distended, guarding, rebound, rigid Extremities exam: Present: normal inspection, full ROM, normal capillary refill. Absent: tenderness, pedal edema, joint swelling, calf tenderness Back exam: Present: normal inspection Neurological exam: Present: alert, oriented X3, CN II-XII intact Psychiatric exam: Present: normal affect, normal mood Skin exam: Present: warm, dry, intact, normal color. Absent: rash Course Vital Signs 08/30/22 08/30/22 08/30/22 12:14 12:37 12:40 Temperature 97.9 F Pulse Rate 69 62 62 Respiratory 16 24 17 Rate Blood Pressure 166/104 157/96 157/96 O2 Sat by Pulse 100 98 Oximetry 08/30/22 08/30/22 08/30/22 13:20 14:18 16:00 Temperature Pulse Rate 61 59 L 71 Respiratory 21 20 18 Rate Blood Pressure 150/87 145/89 153/98 O2 Sat by Pulse 98 97 Oximetry 08/30/22 08/30/22 08/31/22 20:18 23:00 00:00 Temperature 99.0 F Pulse Rate 70 82 96 Respiratory 22 20 18 Rate Blood Pressure 152/122 155/87 160/92 O2 Sat by Pulse 100 96 Oximetry 08/31/22 08/31/2208/31/23 01:00 02:00 06:00 Temperature Pulse Rate 83 95 79 Respiratory 26 H 12 15 Rate Blood Pressure 137/94 144/99 120/103 O2 Sat by Pulse 98 96 Oximetry 08/31/22 06:09 Temperature 97.9 F Pulse Rate Respiratory Rate Blood Pressure O2 Sat by Pulse Oximetry Medical Decision Making - Medical Decision Making Was pt. sent in by a medical professional or institution (, PA, MAINTENANCE PIPEFITTER, urgent care, hospital, or senior living...) When possible be specific @ -No Did you speak to anyone other than the patient for history (EMS, parent, family, police, friend...)? What history was obtained from this source @ -I spoke with regarding history Did you review nursing and triage notes (agree or disagree)? Why? @ -I reviewed and agree with nursing and triage notes Were old charts reviewed (outside hosp., previous admission, EMS record, old EKG, old radiological studies, urgent care reports/EKG's, senior living records)? Report findings @ -And review the patient's chart from March 2022 when he was here for similar pain Differential Diagnosis (chest pain, altered mental status, abdominal pain women, abdominal pain men, vaginal bleeding, weakness, fever, dyspnea, syncope, heada jesse, dizziness, GI bleed, back pain, seizure, CVA, palpatations, mental health, musculoskeletal)? @ -Differential Abdominal Pain Men: Appendicitis, cholecystitis, diverticulosis, ischemic bowel, pancreatitis, hepatitis, UTI, gastroenteritis, AAA, incarcerated hernia, bowel obstruction, constipation, inflammatory bowel, hepatitis, peptic ulcer disease, splenic infarction, perforated viscus, testicular torsion, this is not meant to be an all-inclusive list EKG interpreted by me (3pts min.). @ -Yes and demonstrates sinus rhythm with a rate of 63. PA interval 127. QRS 102. QTC 442. No acute ST segment elevations or depressions X-rays interpreted by me (1pt min.). @ -None done CT interpreted by me (1pt min.). @ -Yes and demonstrates possible cholecystitis U/S interpreted by me (1pt. min.). @ -Yes and demonstrates cholelithiasis What testing was considered but not performed or refused? (CT, X-rays, U/S, labs)? Why? @ -None What meds were considered but not given or refused? Why? @ -None Did you discuss the management of the patient with other professionals (professionals i.e. , PA, MAINTENANCE PIPEFITTER, lab, RT, psych nurse, rn social work, auger press operator, teacher, dental officer, shelter case manager)? Give summary @ -Dr. Sanchez Was smoking cessation discussed for >3mins.? @ -No Was critical care preformed (if so, how long)? @ -No Were there social determinants of health that impacted care today? How? (Homelessness, low income, unemployed, alcoholism, drug addiction, transportation, low edu. Level, literacy, decrease access to med. care, fci, rehab)? @ -No Was there de-escalation of care discussed even if they declined (Discuss DNR or withdrawal of care, Hospice)? DNR status @ -No What co-morbidities impacted this encounter? (DM, HTN, Smoking, COPD, CAD, Cancer, CVA, ARF, Chemo, Hep., AIDS, mental health diagnosis, sleep apnea, morbid obesity)? @ -None Was patient admitted / discharged? Hospital course, mention meds given and route, prescriptions, significant lab abnormalities, going to OR and other p ertinent info. @ -Upon arrival patient was placed into room 16. A thorough history and physical exam was performed. IV access is established and laboratory studies are conducted patient is a white count of 13.2. Lactic acid of 4.6. CT is performed which demonstrates decompressed gallbladder. Nonobstructing left renal calculus. Hepatic steatosis. Ultrasound is completed of the gallbladder which demonstrates contracted 2 cm gallstone noted in the gallbladder lumen. Positive Restrepo's sign. Discuss these results with Dr. Weber. He was agreeable to admit the patient. He will be started on Zosyn. He'll be provided with fluids, pain control and antinausea medications. He'll be made nothing by mouth at midnight. Patient was agreeable to this plan and is awaiting bed on the floor in stable condition Undiagnosed new problem with uncertain prognosis? @ -Yes Drug Therapy requiring intensive monitoring for toxicity (Heparin, Nitro, Insulin, Cardizem)? @ -No Were any procedures done? @ -No Diagnosis/symptom? @ -Acute epigastric abdominal pain, acute cholecystitis Acute, or Chronic, or Acute on Chronic? @ -acute Uncomplicated (without systemic symptoms) or Complicated (systemic symptoms)? @ -complicated Side effects of treatment? @ -No Exacerbation, Progression, or Severe Exacerbation? @ -No Poses a threat to life or bodily function? How? (Chest pain, [place], [place], pneumonia, PE, COPD, DKA, ARF, appy, cholecystitis, CVA, Diverticulitis, Homicidal, Suicidal, threat to staff... and all critical care pts) @ -yes, patient requires surgery due to diagnosis - Lab Data Result diagrams: 09/02/22 05:16 09/02/22 05:16 Lab Results 08/30/22 08/30/22 08/30/22 Range/Units 12:35 12:35 12:35 WBC 13.2 H (3.8-10.6) k/uL RBC 5.00 (4.30-5.90) m/uL Hgb 15.5 (13.0-17.5) gm/dL Hct 44.7 (39.0-53.0) % MCV 89.4 (80.0-100.0) fL MCH 31.0 (25.0-35.0) pg MCHC 34.7 (31.0-37.0) g/dL RDW 12.5 (11.5-15.5) % Plt Count 337 (150-450) k/uL MPV 7.2 Neutrophils % 70 % Lymphocytes % 21 % Monocytes % 6 % Eosinophils % 1 % Basophils % 0 % Neutrophils # 9.2 H (1.3-7.7) k/uL Lymphocytes # 2.8 (1.0-4.8) k/uL Monocytes # 0.7 (0-1.0) k/uL Eosinophils # 0.2 (0-0.7) k/uL Basophils # 0.0 (0-0.2) k/uL PT 9.6 (9.0-12.0) sec INR 0.9 (<1.2) APTT 20.1 L (22.0-30.0) sec Sodium 135 L (137-145) mmol/L Potassium 4.1 (3.5-5.1) mmol/L Chloride 102 (98-107) mmol/L Carbon Dioxide 20 L (22-30) mmol/L Anion Gap 13 mmol/L BUN 22 H (9-20) mg/dL Creatinine 0.81 (0.66-1.25) mg/dL Est GFR (CKD-EPI)AfAm >90 (>60 ml/min/1.73 sqM) Est GFR (CKD-EPI)NonAf >90 (>60 ml/min/1.73 sqM) Glucose 204 H (74-99) mg/dL Lactic Ac Sepsis Rflx Plasma Lactic Acid Luis (0.7-2.0) mmol/L Calcium 9.5 (8.4-10.2) mg/dL Total Bilirubin 1.3 (0.2-1.3) mg/dL AST 31 (17-59) U/L ALT 33 (4-49) U/L Alkaline Phosphatase 132 H (38-126) U/L Troponin I (0.000-0.034) ng/mL Total Protein 7.6 (6.3-8.2) g/dL Albumin 4.4 (3.5-5.0) g/dL Lipase 134 (23-300) U/L Urine Color Urine Appearance (Clear) Urine pH (5.0-8.0) Ur Specific Cla[place] (1.001-1.035) Urine Protein (Negative) Urine Glucose (UA) (Negative) Urine Ketones (Negative) Urine Blood (Negative) Urine Nitrite (Negative) Urine Bilirubin (Negative) Urine Urobilinogen (<2.0) mg/dL Ur Leukocyte Esterase (Negative) 08/30/22 08/30/22 08/30/22 Range/Units 12:35 13:16 13:16 WBC (3.8-10.6) k/uL RBC (4.30-5.90) m/uL Hgb (13.0-17.5) gm/dL Hct (39.0-53.0) % MCV (80.0-100.0) fL MCH (25.0-35.0) pg MCHC (31.0-37.0) g/dL RDW (11.5-15.5) % Plt Count (150-450) k/uL MPV Neutrophils % % Lymphocytes % % Monocytes % % Eosinophils % % Basophils % % Neutrophils # (1.3-7.7) k/uL Lymphocytes # (1.0-4.8) k/uL Monocytes # (0-1.0) k/uL Eosinophils # (0-0.7) k/uL Basophils # (0-0.2) k/uL PT (9.0-12.0) sec INR (<1.2) APTT (22.0-30.0) sec Sodium (137-145) mmol/L Potassium (3.5-5.1) mmol/L Chloride (98-107) mmol/L Carbon Dioxide (22-30) mmol/L Anion Gap mmol/L BUN (9-20) mg/dL Creatinine (0.66-1.25) mg/dL Est GFR (CKD-EPI)AfAm (>60 ml/min/1.73 sqM) Est GFR (CKD-EPI)NonAf (>60 ml/min/1.73 sqM) Glucose (74-99) mg/dL Lactic Ac Sepsis Rflx Plasma Lactic Acid Luis 4.6 H* (0.7-2.0) mmol/L Calcium (8.4-10.2) mg/dL Total Bilirubin (0.2-1.3) mg/dL AST (17-59) U/L ALT (4-49) U/L Alkaline Phosphatase (38-126) U/L Troponin I <0.012 (0.000-0.034) ng/mL Total Protein (6.3-8.2) g/dL Albumin (3.5-5.0) g/dL Lipase (23-300) U/L Urine Color Yellow Urine Appearance Clear (Clear) Urine pH 7.0 (5.0-8.0) Ur Specific [place] 1.050 H (1.001-1.035) Urine Protein Negative (Negative) Urine Glucose (UA) 4+ H (Negative) Urine Ketones 2+ H (Negative) Urine Blood Negative (Negative) Urine Nitrite Negative (Negative) Urine Bilirubin Negative (Negative) Urine Urobilinogen <2.0 (<2.0) mg/dL Ur Leukocyte Esterase Negative (Negative) 08/30/22 Range/Units 13:40 WBC (3.8-10.6) k/uL RBC (4.30-5.90) m/uL Hgb (13.0-17.5) gm/dL Hct (39.0-53.0) % MCV (80.0-100.0) fL MCH (25.0-35.0) pg MCHC (31.0-37.0) g/dL RDW (11.5-15.5) % Plt Count (150-450) k/uL MPV Neutrophils % % Lymphocytes % % Monocytes % % Eosinophils % % Basophils % % Neutrophils # (1.3-7.7) k/uL Lymphocytes # (1.0-4.8) k/uL Monocytes # (0-1.0) k/uL Eosinophils # (0-0.7) k/uL Basophils # (0-0.2) k/uL PT (9.0-12.0) sec INR (<1.2) APTT (22.0-30.0) sec Sodium (137-145) mmol/L Potassium (3.5-5.1) mmol/L Chloride (98-107) mmol/L Carbon Dioxide (22-30) mmol/L Anion Gap mmol/L BUN (9-20) mg/dL Creatinine (0.66-1.25) mg/dL Est GFR (CKD-EPI)AfAm (>60 ml/min/1.73 sqM) Est GFR (CKD-EPI)NonAf (>60 ml/min/1.73 sqM) Glucose (74-99) mg/dL Lactic Ac Sepsis Rflx Y Plasma Lactic Acid Luis (0.7-2.0) mmol/L Calcium (8.4-10.2) mg/dL Total Bilirubin (0.2-1.3) mg/dL AST (17-59) U/L ALT (4-49) U/L Alkaline Phosphatase (38-126) U/L Troponin I (0.000-0.034) ng/mL Total Protein (6.3-8.2) g/dL Albumin (3.5-5.0) g/dL Lipase (23-300) U/L Urine Color Urine Appearance (Clear) Urine pH (5.0-8.0) Ur Specific [place] (1.001-1.035) Urine Protein (Negative) Urine Glucose (UA) (Negative) Urine Ketones (Negative) Urine Blood (Negative) Urine Nitrite (Negative) Urine Bilirubin (Negative) Urine Urobilinogen (<2.0) mg/dL Ur Leukocyte Esterase (Negative) Disposition Clinical Impression: Acute cholecystitis, Cholelithiasis, Lactic acid acidosis, Leukocytosis Disposition: ADMITTED IP TO THIS [facility] Condition: Stable Is patient prescribed a controlled substance at d/c from ED?: No Time of Disposition: 15:09 Decision to Admit Reason: Admit from EC Decision Date: 08/30/22 Decision Time: 15:09
[2022-08-30 12:44] LABS: Basophils % (A) 0 %; Eosinophils # (A) 0.2 k/uL (0-0.7); Eosinophils % (A) 1 %; HCT 44.7 % (39.0-53.0); HGB 15.5 gm/dL (13.0-17.5); Lymphocytes # (A) 2.8 k/uL (1.0-4.8); Lymphocytes % (A) 21 %; MCHC 34.7 g/dL (31.0-37.0); MCV 89.4 fL (80.0-100.0); Mean Platelet Volume 7.2; Monocytes # (A) 0.7 k/uL (0-1.0); Monocytes % (A) 6 %; Neutrophils # (A) 9.2 k/uL (1.3-7.7); Neutrophils % (A) 70 %; Platelet Count 337 k/uL (150-450); RDW 12.5 % (11.5-15.5); WBC 13.2 k/uL (3.8-10.6)
[2022-08-30 13:02] LABS: ALT 33 U/L (4-49); AST 31 U/L (17-59); African American GFR (CKD) >90 (>60 ml/min/1.73 sqM); Albumin 4.4 g/dL (3.5-5.0); Alkaline Phosphatase 132 U/L (38-126); Anion Gap 13 mmol/L; Blood Urea Nitrogen 22 mg/dL (9-20); Calcium 9.5 mg/dL (8.4-10.2); Carbon Dioxide 20 mmol/L (22-30); Chloride 102 mmol/L (98-107); Glucose 204 mg/dL (74-99); Lipase 134 U/L (23-300); Non-African American GFR(CKD) >90 (>60 ml/min/1.73 sqM); Potassium 4.1 mmol/L (3.5-5.1); Sodium 135 mmol/L (137-145); Total Bilirubin 1.3 mg/dL (0.2-1.3); Total Protein 7.6 g/dL (6.3-8.2)
[2022-08-30 13:08] LABS: INR 0.9 (<1.2); Prothrombin Time 9.6 sec (9.0-12.0)
[2022-08-30 13:12] LABS: Partial Thromboplastin Time 20.1 sec (22.0-30.0)
--- NOTE | 2022-08-30 14:04 | CT ---
EXAMINATION TYPE: CT abdomen pelvis w con CT DLP: 1892.3 mGycm, Automated exposure control for dose reduction was used. DATE OF EXAM: 08/30/2022 1:47 PM COMPARISON: 04/10/2022 CLINICAL INDICATION:Male, 57 years old with history of abdominal pain; Abdominal pain TECHNIQUE: Axial CT of the abdomen and pelvis. Sagittal and coronal reformats were created on a [employer] workstation. Contrast used:100 ml mL of Isovue 300 with IV Contrast, (none if empty) Oral contrast used: without Oral Contrast (none if empty) FINDINGS: LOWER CHEST: Unremarkable ABDOMEN LIVER: Diffusely hypoattenuating parenchyma. GALLBLADDER AND BILE DUCTS: Slightly decompressed gallbladder with possible wall thickening. PANCREAS: Unremarkable. SPLEEN: Unremarkable. ADRENAL GLANDS: Unremarkable. KIDNEYS AND URETERS: Left parapelvic cyst are incidentally noted. Nonobstructing left lower pole 3 mm renal calculus. No hydronephrosis. The ureters are unremarkable. PELVIS BLADDER: Unremarkable REPRODUCTIVE: Unremarkable. ABDOMEN & PELVIS STOMACH AND BOWEL: Stomach and duodenum are unremarkable. Scattered diverticula are noted throughout the colon. No evidence of bowel obstruction. Appendix is normal. PERITONEUM: No evidence of pneumoperitoneum. Similar trace fluid in Gan's pouch. VASCULATURE: No evidence of aortic aneurysm. MUSCULOSKELETAL: Degenerative changes of L5-S1. Otherwise no acute osseous abnormalities. LYMPH NODES: No gross evidence for lymphadenopathy. SOFT TISSUE/ABDOMINAL WALL: Bilateral fat filled inguinal hernias. IMPRESSION: 1. Slightly decompressed gallbladder with some hyperemic borders. Correlate for signs and symptoms of acute cholecystitis. No acute intra-abdominal or intrapelvic process. 2. Nonobstructing left renal calculus. 3. Hepatic steatosis and other incidental findings as detailed above.
[2022-08-30] MEDS ORDERED: SODIUM CHLORIDE 0.9% 1,000 ML IV ONE (14:23)
--- NOTE | 2022-08-30 14:52 | US ---
EXAMINATION TYPE: US gallbladder DATE OF EXAM: 08/30/2022 COMPARISON: Same day CT CLINICAL INDICATION: Male, 57 years old with history of abd pain; ABD pain, abnormal CT TECHNIQUE: Multiple sonographic images of the right upper quadrant are obtained. 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 Contracted 2 cm gallstone noted in the gallbladder lumen. No definitive evidence for pericholecys tic fluid or wall thickening. There is positive sonographic Restrepo sign correlate with nuclear medici ne HIDA scan. 2. Hepatic steatosis.
[2022-08-30] MEDS ORDERED: NALOXONE 0.4 MG/ML 1 ML VIAL IV PRN (15:09)
[2022-08-30] MEDS ORDERED: ONDANSETRON 4 MG/2 ML VIAL IVP PRN (15:09)
[2022-08-30] MEDS ORDERED: HYDROmorphone 1 MG/ML 1 ML SYRINGE IVP PRN (15:09)
[2022-08-30 15:37] LABS: Appearance,Urine Clear (Clear); Bilirubin,Urine Negative (Negative); Blood,Urine Negative (Negative); Color,Urine Yellow; Glucose,Urine (UA) 4+ (Negative); Leukocyte Esterase,Urine Negative (Negative); Nitrite,Urine Negative (Negative); Protein,Urine Negative (Negative); Urobilinogen,Urine <2.0 mg/dL (<2.0)
[2022-08-30 15:58] LABS: Ketones,Urine 2+ (Negative)
[2022-08-30] MEDS: PIPERACILLIN-TAZOBACTAM 3.375 GM in SODIUM CHLORIDE 0.9% 100 ML IVPB SCH (16:29)
[2022-08-30] MEDS: SODIUM CHLORIDE 0.9% 1,000 ML IV SCH ×2 (18:46→22:36)
[2022-08-30] MEDS: HYDROmorphone 0.5 MG/0.5 ML SYRINGE IVP PRN (20:29)
[2022-08-31] MEDS: PIPERACILLIN-TAZOBACTAM 3.375 GM in SODIUM CHLORIDE 0.9% 100 ML IVPB SCH ×3 (00:44→16:49)
[2022-08-31 06:09] LABS: Glucose,Whole Blood 154 mg/dL (70-110)
[2022-08-31] MEDS: SODIUM CHLORIDE 0.9% 1,000 ML IV SCH ×3 (06:28→22:34)
[2022-08-31 08:56] LABS: ALT 32 U/L (4-49); AST 27 U/L (17-59); African American GFR (CKD) >90 (>60 ml/min/1.73 sqM); Albumin 3.7 g/dL (3.5-5.0); Albumin/Globulin Ratio 1.2; Alkaline Phosphatase 86 U/L (38-126); Anion Gap 5 mmol/L; Blood Urea Nitrogen 12 mg/dL (9-20); Calcium 8.7 mg/dL (8.4-10.2); Carbon Dioxide 24 mmol/L (22-30); Chloride 106 mmol/L (98-107); Glucose 173 mg/dL (74-99); Non-African American GFR(CKD) >90 (>60 ml/min/1.73 sqM); Potassium 3.9 mmol/L (3.5-5.1); Sodium 135 mmol/L (137-145); Total Bilirubin 3.1 mg/dL (0.2-1.3); Total Protein 6.7 g/dL (6.3-8.2)
[2022-08-31] MEDS: lisinopriL 5 MG TAB PO SCH (10:07)
--- NOTE | 2022-08-31 10:48 | P.GSHP ---
History of Present Illness H&P Date: 08/31/22 CHIEF COMPLAINT: Abdominal HISTORY OF PRESENT ILLNESS: This is a 57-year-old male who presented to the hospital with abdominal pain. Patient reports the pain started yesterday after he drank coffee with cream and sugar. He had abdominal cramping and diffuse pain. The pain then moved to the right upper quadrant. He denies any nausea or vomiting. However he does report having chills and sweats. Does have a history of diabetes. No prior surgical history. Denies any cardiac history. Gallbl adder ultrasound had shown a contracted 2 cm gallstone in the gallbladder lumen with a positive Restrepo sign. Patient is admitted to the hospital to acute cholecystitis. He did have elevated white count and lactic acid level. PAST MEDICAL HISTORY: See below PAST SURGICAL HISTORY: See below MEDICATIONS: See below ALLERGIES: See below SOCIAL HISTORY: No illicit drug use. Uses marijuana occasionally REVIEW OF SYSTEMS: CONSTITUTIONAL: Denies fever or chills. HEENT: Denies blurred vision, vision changes, or eye pain. Denies hemoptysis CARDIOVASCULAR: Denies chest pain or pressure. RESPIRATORY: No shortness of breath. GASTROINTESTINAL: See HPI for pertinent findings HEMATOLOGIC: Denies bleeding disorders. GENITOURINARY: Denies any blood in urine or increased urinary frequency. SKIN: Denies pruitis. Denies rash. PHYSICAL EXAM: VITAL SIGNS: Reviewed GENERAL: Well-developed in no acute distress. HEENT: No sclera icterus. Extraocular movements grossly intact. Moist buccal mucosa. Head is atraumatic, normocephalic. No nasal drainage. ABDOMEN: Soft. Nondistended. Tenderness with palpation of the right upper quadrant NEUROLOGIC: Alert and oriented. Cranial nerves II through XII grossly intact. LABORATORY DATA: WBC 13.2 Hgb 15.5 platelets 337 Sodium 135 potassium 3.9 creatinine 0.73 glucose 173 Lactic acid 4.6 down to 1.9 Troponin negative total bili 1.3 up to 3.1 AST 31 ALT 33 alk phos 132 down to 86 Urinalysis negative for infection IMAGING: Computed tomography scan abdomen and pelvis slightly decompressed gallbladder with some hyperemic borders correlate for signs and symptoms of acute cholecystitis. No acute intra-abdominal or intrapelvic process. Nonobstructing left renal calculus. Hepatic steatosis and other incidental findings as detailed above. Gallbladder ultrasound contracted 2 cm gallstone in noted in the gallbladder lumen. No definitive evidence for pericholecystic fluid or wall thickening. There is positive Restrepo sign. Hepatic steatosis. ASSESSMENT: 1. Acute cholecystitis 2. Cholelithiasis PLAN: -Patient scheduled for laparoscopic cholecystectomy today with Dr. Sanchez -Keep patient nothing by mouth -Continue antibiotics -Continue IV fluids -Continue supportive care Physician Mastercam Programmer note has been reviewed by physician. Signing provider agrees with the documented findings, assessment, and plan of care. Past Medical History Past Medical History: No Reported History, Diabetes Mellitus History of Any Multi-Drug Resistant Organisms: None Reported Past Surgical History: No Surgical Hx Reported Past Anesthesia/Blood Transfusion Reactions: No Reported Reaction Past Psychological History: No Psychological Hx Reported Smoking Status: Former smoker Past Alcohol Use History: Occasional Past Drug Use History: Marijuana - Past Family History Mother Family Medical History: Diabetes Mellitus, Hypertension Father Family Medical History: Hypertension Sister(s) Family Medical History: No Reported History Medications and Allergies Home Medications Medication Instructions Recorded Confirmed Type lisinopriL [Zestril] 5 mg PO DAILY 04/10/22 08/30/22 History metFORMIN HCL [Glucophage] 500 mg PO DAILY 04/10/22 08/30/22 History Ibuprofen [Motrin] 800 mg PO BID PRN 08/30/22 08/30/22 History Naproxen [EC-Naproxen] 500 mg PO Q12H PRN 08/30/22 08/30/22 History Allergies Allergy/AdvReac Type Severity Reaction Status Date / Time tuberculin,PPD,multi-puncture Allergy ARM Verified 08/30/22 15:41 SWELLING Surgical - Exam Vital Signs Temp Pulse Resp BP Pulse Ox 97.9 F 69 16 166/104 100 08/30/22 12:14 08/30/22 12:14 08/30/22 12:14 08/30/22 12:14 08/30/22 12:14 Results - Labs 08/30/22 12:35 08/31/22 08:25 Abnormal Lab Results - Last 24 Hours (Table) 08/30/22 08/30/22 08/30/22 Range/Units 12:35 12:35 12:35 WBC 13.2 H (3.8-10.6) k/uL Neutrophils # 9.2 H (1.3-7.7) k/uL APTT 20.1 L (22.0-30.0) sec Sodium 135 L (137-145) mmol/L Carbon Dioxide 20 L (22-30) mmol/L BUN 22 H (9-20) mg/dL Glucose 204 H (74-99) mg/dL POC Glucose (mg/dL) (70-110) mg/dL Plasma Lactic Acid Luis (0.7-2.0) mmol/L Total Bilirubin (0.2-1.3) mg/dL Alkaline Phosphatase 132 H (38-126) U/L Ur Specific [place] (1.001-1.035) Urine Glucose (UA) (Negative) Urine Ketones (Negative) 08/30/22 08/30/22 08/30/22 Range/Units 13:16 13:16 15:55 WBC (3.8-10.6) k/uL Neutrophils # (1.3-7.7) k/uL APTT (22.0-30.0) sec Sodium (137-145) mmol/L Carbon Dioxide (22-30) mmol/L BUN (9-20) mg/dL Glucose (74-99) mg/dL POC Glucose (mg/dL) (70-110) mg/dL Plasma Lactic Acid Luis 4.6 H* 3.3 H* (0.7-2.0) mmol/L Total Bilirubin (0.2-1.3) mg/dL Alkaline Phosphatase (38-126) U/L Ur Specific [place] 1.050 H (1.001-1.035) Urine Glucose (UA) 4+ H (Negative) Urine Ketones 2+ H (Negative) 08/30/22 08/31/22 08/31/22 Range/Units 18:54 06:07 08:25 WBC (3.8-10.6) k/uL Neutrophils # (1.3-7.7) k/uL APTT (22.0-30.0) sec Sodium 135 L (137-145) mmol/L Carbon Dioxide (22-30) mmol/L BUN (9-20) mg/dL Glucose 173 H (74-99) mg/dL POC Glucose (mg/dL) 154 H (70-110) mg/dL Plasma Lactic Acid Luis 3.8 H* (0.7-2.0) mmol/L Total Bilirubin 3.1 H (0.2-1.3) mg/dL Alkaline Phosphatase (38-126) U/L Ur Specific [place] (1.001-1.035) Urine Glucose (UA) (Negative) Urine Ketones (Negative) Diabetes panel 08/30/22 08/31/22 Range/Units 12:35 08:25 Sodium 135 L 135 L (137-145) mmol/L Potassium 4.1 3.9 (3.5-5.1) mmol/L Chloride 102 106 (98-107) mmol/L Carbon Dioxide 20 L 24 (22-30) mmol/L BUN 22 H 12 (9-20) mg/dL Creatinine 0.81 0.73 (0.66-1.25) mg/dL Glucose 204 H 173 H (74-99) mg/dL Calcium 9.5 8.7 (8.4-10.2) mg/dL AST 31 27 (17-59) U/L ALT 33 32 (4-49) U/L Alkaline Phosphatase 132 H 86 (38-126) U/L Total Protein 7.6 6.7 (6.3-8.2) g/dL Albumin 4.4 3.7 (3.5-5.0) g/dL Calcium panel 08/30/22 08/31/22 Range/Units 12:35 08:25 Calcium 9.5 8.7 (8.4-10.2) mg/dL Albumin 4.4 3.7 (3.5-5.0) g/dL Pituitary panel 08/30/22 08/31/22 Range/Units 12:35 08:25 Sodium 135 L 135 L (137-145) mmol/L Potassium 4.1 3.9 (3.5-5.1) mmol/L Chloride 102 106 (98-107) mmol/L Carbon Dioxide 20 L 24 (22-30) mmol/L BUN 22 H 12 (9-20) mg/dL Creatinine 0.81 0.73 (0.66-1.25) mg/dL Glucose 204 H 173 H (74-99) mg/dL Calcium 9.5 8.7 (8.4-10.2) mg/dL Adrenal panel 08/30/22 08/31/22 Range/Units 12:35 08:25 Sodium 135 L 135 L (137-145) mmol/L Potassium 4.1 3.9 (3.5-5.1) mmol/L Chloride 102 106 (98-107) mmol/L Carbon Dioxide 20 L 24 (22-30) mmol/L BUN 22 H 12 (9-20) mg/dL Creatinine 0.81 0.73 (0.66-1.25) mg/dL Glucose 204 H 173 H (74-99) mg/dL Calcium 9.5 8.7 (8.4-10.2) mg/dL Total Bilirubin 1.3 3.1 H (0.2-1.3) mg/dL AST 31 27 (17-59) U/L ALT 33 32 (4-49) U/L Alkaline Phosphatase 132 H 86 (38-126) U/L Total Protein 7.6 6.7 (6.3-8.2) g/dL Albumin 4.4 3.7 (3.5-5.0) g/dL
[2022-08-31] MEDS: ACETAMINOPHEN IV (For NPO) 1,000 MG in EMPTY BAG 1 BAG IVPB SCH ×2 (11:44→17:18)
[2022-08-31] MEDS: HYDROmorphone 0.5 MG/0.5 ML SYRINGE IVP PRN (11:47)
[2022-08-31] MEDS ORDERED: DEXTROSE 50% SYRINGE 50 ML IVP PRN ×2 (12:41)
--- NOTE | 2022-08-31 14:43 | P.CONS ---
History of Present Illness - Reason for Consult Consult date: 08/31/22 Medical management - History of Present Illness History of present illness; patient is a 57-year-old gentleman with past medical history significant for diabetes mellitus who presented to the ER yesterday because of right upper quadrant abdominal pain. Patient stated that he was working in when after drinking a cup of coffee started having right upper quadrant abdominal pain, pain was so severe that he immediately called EMS. There was no complain of any nausea or vomiting. No complain of fever or chills. Patient came to the ER, gallbladder ultrasound showed a contracted 2 cm gallstone in the gallbladder lumen with a positive Restrepo sign. Patient was admitted to surgery REVIEW OF SYSTEMS: CONSTITUTIONAL: No fever, no malaise, no fatigue. HEENT: No recent visual problems or hearing problems. Denied any sore throat. CARDIOVASCULAR: No chest pain, orthopnea, PND, no palpitations, no syncope. PULMONARY: No shortness of breath, no cough, no hemoptysis. GASTROINTESTINAL: As mentioned in HPI NEUROLOGICAL: No headaches, no weakness, no numbness. HEMATOLOGICAL: Denies any bleeding or petechiae. GENITOURINARY: Denies any burning micturition, frequency, or urgency. MUSCULOSKELETAL/RHEUMATOLOGICAL: Denies any joint pain, swelling, or any muscle pain. ENDOCRINE: Denies any polyuria or polydipsia. The rest of the 14-point review of systems is negative. PHYSICAL EXAMINATION: GENERAL: The patient is alert and oriented x3, not in any acute distress. Well developed, well nourished. HEENT: Pupils are round and equally reacting to light. EOMI. No scleral icterus. No conjunctival pallor. Normocephalic, atraumatic. No pharyngeal erythema. No thyromegaly. CARDIOVASCULAR: S1 and S2 present. No murmurs, rubs, or gallops. PULMONARY: Chest is clear to auscultation, no wheezing or crackles. ABDOMEN: Right upper quadrant tenderness normoactive bowel sounds. No palpable organomegaly. MUSCULOSKELETAL: No joint swelling or deformity. EXTREMITIES: No cyanosis, clubbing, or pedal edema. NEUROLOGICAL: Gross neurological examination did not reveal any focal deficits. SKIN: No rashes. Assessment and plan Acute cholecystitis [id number] diabetes mellitus Monitor vital signs monitor CBC Monitor CMP Continue pain management per surgery Continue IV fluids Continue sliding scale insulin for now labs and medication were reviewed.. Continue same treatment. Continue with symptomatic treatment. Resume home medication. Monitor labs and vitals. DVT and GI prophylaxis. Further recommendations as per clinical course of the patient Past Medical History Past Medical History: No Reported History, Diabetes Mellitus History of Any Multi-Drug Resistant Organisms: None Reported Past Surgical History: No Surgical Hx Reported Past Anesthesia/Blood Transfusion Reactions: No Reported Reaction Past Psychological History: No Psychological Hx Reported Smoking Status: Former smoker Past Alcohol Use History: Occasional Past Drug Use History: Marijuana - Past Family History Mother Family Medical History: Diabetes Mellitus, Hypertension Father Family Medical History: Hypertension Sister(s) Family Medical History: No Reported History Medications and Allergies Home Medications Medication Instructions Recorded Confirmed Type lisinopriL [Zestril] 5 mg PO DAILY 04/10/22 08/30/22 History metFORMIN HCL [Glucophage] 500 mg PO DAILY 04/10/22 08/30/22 History Ibuprofen [Motrin] 800 mg PO BID PRN 08/30/22 08/30/22 History Naproxen [EC-Naproxen] 500 mg PO Q12H PRN 08/30/22 08/30/22 History Allergies Allergy/AdvReac Type Severity Reaction Status Date / Time tuberculin,PPD,multi-puncture Allergy ARM Verified 08/30/22 15:41 SWELLING Physical Exam Vitals: Vital Signs Temp Pulse Pulse Resp BP BP Pulse Ox 08/31/22 08:28 97.5 F L 95 20 143/90 98 08/31/22 06:09 97.9 F 08/31/22 06:00 79 15 120/103 96 08/31/22 02:00 95 12 144/99 08/31/22 01:00 83 26 H 137/94 98 08/31/22 00:00 96 18 160/92 96 08/30/22 23:00 82 20 155/87 08/30/22 20:18 99.0 F 70 22 152/122 100 08/30/22 16:00 71 18 153/98 97 Intake and Output 08/30/22 08/31/22 08/31/22 22:59 06:59 14:59 Output Total 500 Balance -500 Output: Urine 500 Other: # Voids 1 Weight 104.326 kg Results CBC & Chem 7: 08/30/22 12:35 08/31/22 08:25 Labs: Abnormal Lab Results - Last 24 Hours (Table) 08/30/22 08/30/22 08/30/22 Range/Units 13:16 15:55 18:54 Sodium (137-145) mmol/L Glucose (74-99) mg/dL POC Glucose (mg/dL) (70-110) mg/dL Plasma Lactic Acid Luis 3.3 H* 3.8 H* (0.7-2.0) mmol/L Total Bilirubin (0.2-1.3) mg/dL Ur Specific [place] 1.050 H (1.001-1.035) Urine Glucose (UA) 4+ H (Negative) Urine Ketones 2+ H (Negative) 08/31/22 08/31/22 Range/Units 06:07 08:25 Sodium 135 L (137-145) mmol/L Glucose 173 H (74-99) mg/dL POC Glucose (mg/dL) 154 H (70-110) mg/dL Plasma Lactic Acid Luis (0.7-2.0) mmol/L Total Bilirubin 3.1 H (0.2-1.3) mg/dL Ur Specific [place] (1.001-1.035) Urine Glucose (UA) (Negative) Urine Ketones (Negative)
[2022-08-31 16:39] LABS: Basophils # (A) 0.03 X 10*3/uL (0.00-0.10); Basophils % (A) 0.3 %; Eosinophils # (A) 0.02 X 10*3/uL (0.04-0.35); Eosinophils % (A) 0.2 %; HCT 41.6 % (39.6-50.0); HGB 14.4 d/dL (12.0-15.0); Lymphocytes # (A) 1.46 X 10*3/uL (0.90-5.00); Lymphocytes % (A) 13.2 %; MCH 30.7 pg (27.0-32.0); MCHC 34.6 d/dL (32.0-37.0); MCV 88.7 FL (80.0-97.0); Mean Platelet Volume 9.8 FL (9.5-12.2); Monocytes # (A) 1.24 X 10*3/uL (0.20-1.00); Monocytes % (A) 11.3 %; NRBC Per 100 WBC 0 X 10*3/uL (0.00-0.01); Neutrophils # (A) 8.22 X 10*3/uL (1.80-7.70); Neutrophils % (A) 74.5 %; Platelet Count 252 X 10*3/uL (140-440); RBC 4.69 X 10*6/uL (4.40-5.60); RDW 12.8 % (11.5-14.5); WBC 11.02 X 10*3/uL (4.50-10.00)
[2022-08-31] MEDS ORDERED: ONDANSETRON 4 MG/2 ML VIAL IVP ONE ×2 (18:05→19:48)
[2022-08-31] MEDS ORDERED: DEXAMETHASONE SOD PHOSPHATE 4 MG/ML 1 ML VIAL IVP ONE (18:05)
[2022-08-31] MEDS ORDERED: KETOROLAC 15 MG/ML 1 ML VIAL ONE (18:08)
[2022-08-31] MEDS ORDERED: LABETALOL 5 MG/ML VIAL MDV ONE (18:08)
[2022-08-31] MEDS ORDERED: GLYCOPYRROLATE 0.2 MG/ML 2 ML VIAL ONE (18:08)
[2022-08-31] MEDS ORDERED: SUCCINYLCHOLINE CHLORIDE 200 MG/10 ML VIAL IV ONE (18:08)
[2022-08-31] MEDS ORDERED: HYDROmorphone (PF) 1 MG/ML ONE (18:08)
[2022-08-31] MEDS ORDERED: fentaNYL (PF) 50 MCG/ML 2 ML AMP ONE (18:08)
[2022-08-31] MEDS ORDERED: PROPOFOL 10 MG/ML 20 ML VIAL IV ONE (18:08)
[2022-08-31] MEDS ORDERED: ROCURONIUM 10 MG/ML (5 ML VIAL) IV ONE (18:08)
[2022-08-31] MEDS ORDERED: NEOSTIGMINE 1 MG/ML 10 ML VIAL ONE (18:08)
[2022-08-31] MEDS ORDERED: LIDOCAINE 2% INJ 20 MG/ML (2 ML VIAL) ONE (18:08)
[2022-08-31] MEDS ORDERED: MIDAZOLAM 2 MG/2 ML VIAL ONE (18:08)
[2022-08-31] MEDS ORDERED: LACTATED RINGERS 1,000 ML IV ONE ×3 (18:10→19:17)
[2022-08-31 18:11] LABS: Glucose,Whole Blood 153 mg/dL (70-110)
[2022-08-31] MEDS: INSULIN ASPART (NovoLOG) 100 UNIT/ML VIAL SQ SCH ×2 (18:29→21:06)
[2022-08-31] MEDS ORDERED: BUPIVACAINE (PF) 0.25% 30 ML VIAL SQ ONE (18:38)
[2022-08-31] MEDS ORDERED: NALOXONE 0.4 MG/ML 1 ML VIAL IV PRN (19:17)
[2022-08-31] MEDS ORDERED: HYDROcodone/APAP 5-325MG 1 EACH TAB PO PRN (19:17)
[2022-08-31] MEDS ORDERED: ONDANSETRON 4 MG/2 ML VIAL IVP PRN (19:17)
[2022-08-31] MEDS ORDERED: HYDROmorphone 1 MG/ML 1 ML SYRINGE IVP PRN (19:17)
[2022-08-31] MEDS ORDERED: ACETAMINOPHEN TAB 325 MG TAB PO PRN (19:17)
[2022-08-31 19:55] LABS: Glucose,Whole Blood 174 mg/dL (70-110)
[2022-08-31 21:25] LABS: Glucose,Whole Blood 191 mg/dL (70-110)
[2022-09-01] MEDS: ACETAMINOPHEN IV (For NPO) 1,000 MG in EMPTY BAG 1 BAG IVPB SCH ×2 (01:11→06:02)
[2022-09-01] MEDS: PIPERACILLIN-TAZOBACTAM 3.375 GM in SODIUM CHLORIDE 0.9% 100 ML IVPB SCH ×4 (01:11→23:19)
[2022-09-01] MEDS: KETOROLAC 15 MG/ML 1 ML VIAL IVP SCH ×5 (01:11→23:18)
[2022-09-01] MEDS: SODIUM CHLORIDE 0.9% 1,000 ML IV SCH ×3 (05:33→21:50)
[2022-09-01 06:18] LABS: Glucose,Whole Blood 179 mg/dL (70-110)
[2022-09-01] MEDS: INSULIN ASPART (NovoLOG) 100 UNIT/ML VIAL SQ SCH ×4 (06:26→21:47)
--- NOTE | 2022-09-01 07:34 | P.OP ---
Date of Procedure: 08/31/22 Preoperative Diagnosis: Acute cholecystitis Postoperative Diagnosis: Acute cholecystitis with gallbladder perforation and bile leak Procedure(s) Performed: Laparoscopic cholecystectomy Anesthesia: CLEMENTINA Surgeon: Yaya Sanchez Estimated Blood Loss (ml): 25 Pathology: other (Gallbladder) Condition: stable Disposition: PACU Description of Procedure: The patient was placed on the operating table. The patient received a general endotracheal tube anesthesia. The patients abdomen was prepped and draped in the usual sterile fashion. Through an infraumbilical stab incision, the fascia of the anterior abdominal wall was grasped with a pair of Kochers and then the Veress needle was placed in the peritoneal cavity. Position of the Veress needle was confirmed with positive drop test. The abdomen was then insufflated. After adequate insufflation, the 10 mm trocar was placed in the peritoneal cavity. Following this the laparoscope was placed in the peritoneal cavity. The patient was placed in the head-up, right side up position and then a 5 mm trocar was placed in the right lateral and right subcostal position under direct visualization. A 8 mm trocar was placed in the epigastric position. There was evidence of bile peritonitis. The gallbladder appeared inflamed. The bile was pooled around the gallbladder fossa area. The gallbladder was grasped in the fundus and infundibulum. The gallbladder appeared to be acutely inflamed. There was possibility of a perforation the gallbladder near the medial aspect of the gallbladder due to a gallstone. Traction on the gallbladder was placed in the lateral and the cephalad positions. The triangle of Calot was visualized.. The cystic duct was bluntly dissected until the union of the cystic duct and common bile duct was seen. A critical view of safety was achieved. The cystic duct was then divided and sealed with the Harmonic scissors. A PDS Endoloop was then placed throughout the cystic duct stump. The cystic artery divided and sealed with the Harmonic scissors. The gallbladder was then removed from the liver bed using Harmonic scissors. The gallbladder was then extracted through the epigastric port site. Operative field was checked for any bleeding spots and Harmonic sci ssors was used to coagulate the liver bed. The abdomen was irrigated. Due to the presence of bile a SANDRA drain is placed into the pleural cavity. This was brought out through the right lateral trocar site. The drain was positioned in the gallbladder fossa. The trocars were removed. The skin was closed using interrupted 3-0 Vicryl suture. Dermabond dressing were applied. The patient tolerated the procedure well.
[2022-09-01] MEDS: lisinopriL 5 MG TAB PO SCH (08:34)
[2022-09-01] MEDS: ENOXAPARIN 40 MG/0.4 ML SYRINGE SQ SCH (08:34)
[2022-09-01 09:26] LABS: Basophils # (A) 0.03 X 10*3/uL (0.00-0.10); Basophils % (A) 0.3 %; Eosinophils # (A) 0 X 10*3/uL (0.04-0.35); Eosinophils % (A) 0 %; HCT 40.7 % (39.6-50.0); HGB 13.6 d/dL (12.0-15.0); Lymphocytes % (A) 12.6 %; MCH 30.1 pg (27.0-32.0); MCHC 33.4 d/dL (32.0-37.0); Mean Platelet Volume 9.8 FL (9.5-12.2); Monocytes # (A) 0.92 X 10*3/uL (0.20-1.00); Monocytes % (A) 8.3 %; NRBC Per 100 WBC 0 X 10*3/uL (0.00-0.01); Neutrophils # (A) 8.62 X 10*3/uL (1.80-7.70); Neutrophils % (A) 77.9 %; Platelet Count 256 X 10*3/uL (140-440); RBC 4.52 X 10*6/uL (4.40-5.60); RDW 12.4 % (11.5-14.5); WBC 11.07 X 10*3/uL (4.50-10.00)
[2022-09-01 09:40] LABS: ALT 64 U/L (10-49); AST 65 U/L (14-35); Albumin 3.7 d/dL (3.8-4.9); Albumin/Globulin Ratio 1.37 Ratio (1.60-3.17); Alkaline Phosphatase 90 U/L (41-126); Blood Urea Nitrogen 10.4 mg/dL (9.0-27.0); Calcium 8.8 mg/dL (8.7-10.3); Carbon Dioxide 20.1 mmol/L (21.6-31.8); Chloride 103 mmol/L (96-109); Globulin 2.7 d/dL (1.6-3.3); Glucose 194 mg/dL (70-110); Potassium 4.1 mmol/L (3.5-5.5); Sodium 136 mmol/L (135-145); Total Bilirubin 2.3 mg/dL (0.3-1.2); Total Protein 6.4 d/dL (6.2-8.2)
[2022-09-01 12:24] LABS: Glucose,Whole Blood 189 mg/dL (70-110)
--- NOTE | 2022-09-01 13:46 | P.PN ---
Subjective Progress Note Date: 09/01/22 patient is a 57-year-old gentleman with past medical history significant for diabetes mellitus who presented to the ER yesterday because of right upper quadrant abdominal pain. Patient stated that he was working in when after drinking a cup of coffee started having right upper quadrant abdominal pain, pa in was so severe that he immediately called EMS. There was no complain of any nausea or vomiting. No complain of fever or chills. Patient came to the ER, gallbladder ultrasound showed a contracted 2 cm gallstone in the gallbladder lumen with a positive Restrepo sign. Patient was admitted to surgery 09/01. Patient seen and examined. States he feels much better abdominal pain has resolved REVIEW OF SYSTEMS: CONSTITUTIONAL: No fever, no malaise,. CARDIOVASCULAR: No chest pain, no palpitations, no syncope. PULMONARY: No shortness of breath, no cough, GASTROINTESTINAL: No diarrhea, no nausea, no vomiting, no abdominal pain. NEUROLOGICAL: No headaches, no weakness, PHYSICAL EXAMINATION: GENERAL: The patient is alert and oriented x3, not in any acute distress. Well developed, well nourished. HEENT: Pupils are round and equally reacting to light. EOMI. No scleral icterus. No conjunctival pallor. Normocephalic, atraumatic. No pharyngeal erythema. No thyromegaly. CARDIOVASCULAR: S1 and S2 present. No murmurs, rubs, or gallops. PULMONARY: Chest is clear to auscultation, no wheezing or crackles. ABDOMEN: Soft, nontender, nondistended, normoactive bowel sounds. No palpable organomegaly. Laparoscopic surgical incision seen MUSCULOSKELETAL: No joint swelling or deformity. EXTREMITIES: No cyanosis, clubbing, or pedal edema. NEUROLOGICAL: Gross neurological examination did not reveal any focal deficits. SKIN: No rashes. Assessment and plan Acute cholecystitis [id number] diabetes mellitus Monitor vital signs Monitor CBC Monitor CMP Status post lap [place] Continue pain management per surgery Continue IV fluids Continue sliding scale insulin for now Labs and medication were reviewed.. Continue same treatment. Continue with symptomatic treatment. Resume home medication. Monitor labs and vitals. DVT and GI prophylaxis. Further recommendations as per clinical course of the patient Objective - Vital Signs Vital signs: Vital Signs Temp 98.2 F 09/01/22 07:00 Pulse 78 09/01/22 08:00 Resp 17 09/01/22 08:00 BP 130/81 09/01/22 07:00 Pulse Ox 97 09/01/22 07:00 FiO2 Intake & Output 08/31/22 09/01/22 09/01/22 18:59 06:59 18:59 Intake Total 4692 939 4869 Output Total 60 500 Balance 1000 140 862 Weight 104.326 kg Intake: IV 1000 200 Oral 1362 Output: Drainage 50 Right Anterior Abdomen 50 Urine 500 Estimated Blood Loss 10 Other: # Voids 1 3 3 - Labs CBC & Chem 7: 09/01/22 05:26 09/01/22 05:26 Labs: Abnormal Lab Results - Last 24 Hours (Table) 08/31/22 08/31/22 08/31/22 Range/Units 08:25 18:09 19:54 WBC 11.02 H (4.50-10.00) X 10*3/uL Neutrophils # 8.22 H (1.80-7.70) X 10*3/uL Monocytes # 1.24 H (0.20-1.00) X 10*3/uL Eosinophils # 0.02 L (0.04-0.35) X 10*3/uL Carbon Dioxide (21.6-31.8) mmol/L Anion Gap (4.00-12.00) mmol/L BUN/Creatinine Ratio (12.00-20.00) Ratio Glucose (70-110) mg/dL POC Glucose (mg/dL) 153 H 174 H (70-110) mg/dL Hemoglobin A1c (<=6.0) % Total Bilirubin (0.3-1.2) mg/dL AST (14-35) U/L ALT (10-49) U/L Albumin (3.8-4.9) d/dL Albumin/Globulin Ratio (1.60-3.17) Ratio 08/31/22 09/01/22 09/01/22 Range/Units 21:24 05:26 05:26 WBC 11.07 H (4.50-10.00) X 10*3/uL Neutrophils # 8.62 H (1.80-7.70) X 10*3/uL Monocytes # (0.20-1.00) X 10*3/uL Eosinophils # 0 L (0.04-0.35) X 10*3/uL Carbon Dioxide (21.6-31.8) mmol/L Anion Gap (4.00-12.00) mmol/L BUN/Creatinine Ratio (12.00-20.00) Ratio Glucose (70-110) mg/dL POC Glucose (mg/dL) 191 H (70-110) mg/dL Hemoglobin A1c 6.7 H (<=6.0) % Total Bilirubin (0.3-1.2) mg/dL AST (14-35) U/L ALT (10-49) U/L Albumin (3.8-4.9) d/dL Albumin/Globulin Ratio (1.60-3.17) Ratio 09/01/22 09/01/22 09/01/22 Range/Units 05:26 06:17 12:23 WBC (4.50-10.00) X 10*3/uL Neutrophils # (1.80-7.70) X 10*3/uL Monocytes # (0.20-1.00) X 10*3/uL Eosinophils # (0.04-0.35) X 10*3/uL Carbon Dioxide 20.1 L (21.6-31.8) mmol/L Anion Gap 12.90 H (4.00-12.00) mmol/L BUN/Creatinine Ratio 10.40 L (12.00-20.00) Ratio Glucose 194 H (70-110) mg/dL POC Glucose (mg/dL) 179 H 189 H (70-110) mg/dL Hemoglobin A1c (<=6.0) % Total Bilirubin 2.3 H (0.3-1.2) mg/dL AST 65 H (14-35) U/L ALT 64 H (10-49) U/L Albumin 3.7 L (3.8-4.9) d/dL Albumin/Globulin Ratio 1.37 L (1.60-3.17) Ratio Microbiology - Last 24 Hours (Table) 08/30/22 15:40 Blood Culture - Preliminary Blood 08/30/22 15:55 Blood Culture - Preliminary Blood
--- NOTE | 2022-09-01 14:37 | P.PN ---
Subjective Progress Note Date: 09/01/22 CHIEF COMPLAINT: Acute cholecystitis HISTORY OF PRESENT ILLNESS: Patient postop day #1 status post laparoscopic cholecystectomy. Pain controlled. Pain improved since yesterday. Denies any nausea vomiting. No flatus. Denies any difficulty urinating. SANDRA drain with 50 mL serosanguineous output. Tolerating clear liquids. Afebrile. WBC 11.07 Hgb 13.6 platelets 256 sodium is 136 potassium is 4.1 creatinine 1.0 total bilirubin down from 3.1 to 2.3 AST 27 up to 65 ALT 32 up to 64 alk phos 90. PHYSICAL EXAM: VITAL SIGNS: Reviewed. GENERAL: Well-developed in no acute distress. HEENT: No sclera icterus. Extraocular movements grossly intact. Moist buccal mucosa. Head is atraumatic, normocephalic. ABDOMEN: Soft. Nondistended. Incision sites clean dry and intact. SANDRA drain in place NEUROLOGIC: Alert and oriented. Cranial nerves II through XII grossly intact. ASSESSMENT: 1. Acute cholecystitis with gallbladder perforation and bile leak status post laparoscopic cholecystectomy PLAN: -Advance diet as tolerated -Continue to monitor SANDRA drain output -Continue antibiotics -Repeat CBC and CMP in a.m. -Continue pain management -Incentive spirometer ordered -Encouraged patient to ambulate -[facility] Phys[facility] Bulk Fluids Handler note has been reviewed by physician. Signing provider agrees with the documented findings, assessment, and plan of care. Objective - Vital Signs Vital signs: Vital Signs Temp 98.2 F 09/01/22 07:00 Pulse 78 09/01/22 08:00 Resp 17 09/01/22 08:00 BP 130/81 09/01/22 07:00 Pulse Ox 97 09/01/22 07:00 FiO2 Intake & Output 08/31/22 09/01/22 09/01/22 18:59 06:59 18:59 Intake Total 9697 840 9288 Output Total 60 500 Balance 1000 140 862 Weight 104.326 kg Intake: IV 1000 200 Oral 1362 Output: Drainage 50 Right Anterior Abdomen 50 Urine 500 Estimated Blood Loss 10 Other: # Voids 1 3 3 - Labs CBC & Chem 7: 09/01/22 05:26 09/01/22 05:26 Labs: Abnormal Lab Results - Last 24 Hours (Table) 08/31/22 08/31/22 08/31/22 Range/Units 08:25 18:09 19:54 WBC 11.02 H (4.50-10.00) X 10*3/uL Neutrophils # 8.22 H (1.80-7.70) X 10*3/uL Monocytes # 1.24 H (0.20-1.00) X 10*3/uL Eosinophils # 0.02 L (0.04-0.35) X 10*3/uL Carbon Dioxide (21.6-31.8) mmol/L Anion Gap (4.00-12.00) mmol/L BUN/Creatinine Ratio (12.00-20.00) Ratio Glucose (70-110) mg/dL POC Glucose (mg/dL) 153 H 174 H (70-110) mg/dL Hemoglobin A1c (<=6.0) % Total Bilirubin (0.3-1.2) mg/dL AST (14-35) U/L ALT (10-49) U/L Albumin (3.8-4.9) d/dL Albumin/Globulin Ratio (1.60-3.17) Ratio 08/31/22 09/01/22 09/01/22 Range/Units 21:24 05:26 05:26 WBC 11.07 H (4.50-10.00) X 10*3/uL Neutrophils # 8.62 H (1.80-7.70) X 10*3/uL Monocytes # (0.20-1.00) X 10*3/uL Eosinophils # 0 L (0.04-0.35) X 10*3/uL Carbon Dioxide (21.6-31.8) mmol/L Anion Gap (4.00-12.00) mmol/L BUN/Creatinine Ratio (12.00-20.00) Ratio Glucose (70-110) mg/dL POC Glucose (mg/dL) 191 H (70-110) mg/dL Hemoglobin A1c 6.7 H (<=6.0) % Total Bilirubin (0.3-1.2) mg/dL AST (14-35) U/L ALT (10-49) U/L Albumin (3.8-4.9) d/dL Albumin/Globulin Ratio (1.60-3.17) Ratio 09/01/22 09/01/22 09/01/22 Range/Units 05:26 06:17 12:23 WBC (4.50-10.00) X 10*3/uL Neutrophils # (1.80-7.70) X 10*3/uL Monocytes # (0.20-1.00) X 10*3/uL Eosinophils # (0.04-0.35) X 10*3/uL Carbon Dioxide 20.1 L (21.6-31.8) mmol/L Anion Gap 12.90 H (4.00-12.00) mmol/L BUN/Creatinine Ratio 10.40 L (12.00-20.00) Ratio Glucose 194 H (70-110) mg/dL POC Glucose (mg/dL) 179 H 189 H (70-110) mg/dL Hemoglobin A1c (<=6.0) % Total Bilirubin 2.3 H (0.3-1.2) mg/dL AST 65 H (14-35) U/L ALT 64 H (10-49) U/L Albumin 3.7 L (3.8-4.9) d/dL Albumin/Globulin Ratio 1.37 L (1.60-3.17) Ratio Microbiology - Last 24 Hours (Table) 08/30/22 15:40 Blood Culture - Preliminary Blood 08/30/22 15:55 Blood Culture - Preliminary Blood
[2022-09-01 17:47] LABS: Glucose,Whole Blood 136 mg/dL (70-110)
[2022-09-01 20:28] LABS: Glucose,Whole Blood 202 mg/dL (70-110)
[2022-09-02 06:37] LABS: Glucose,Whole Blood 137 mg/dL (70-110)
[2022-09-02] MEDS: INSULIN ASPART (NovoLOG) 100 UNIT/ML VIAL SQ SCH ×2 (06:38→12:47)
[2022-09-02] MEDS: KETOROLAC 15 MG/ML 1 ML VIAL IVP SCH ×2 (06:42→12:27)
[2022-09-02] MEDS: SODIUM CHLORIDE 0.9% 1,000 ML IV SCH ×2 (06:43→12:47)
[2022-09-02] MEDS: PIPERACILLIN-TAZOBACTAM 3.375 GM in SODIUM CHLORIDE 0.9% 100 ML IVPB SCH (08:23)
[2022-09-02] MEDS: ENOXAPARIN 40 MG/0.4 ML SYRINGE SQ SCH (08:23)
[2022-09-02] MEDS: lisinopriL 5 MG TAB PO SCH (08:23)
[2022-09-02 08:30] LABS: Basophils # (A) 0.06 X 10*3/uL (0.00-0.10); Basophils % (A) 0.8 %; Eosinophils # (A) 0.33 X 10*3/uL (0.04-0.35); Eosinophils % (A) 4.2 %; HCT 40.3 % (39.6-50.0); HGB 13.4 d/dL (12.0-15.0); Lymphocytes # (A) 2.97 X 10*3/uL (0.90-5.00); Lymphocytes % (A) 37.9 %; MCH 29.9 pg (27.0-32.0); MCHC 33.3 d/dL (32.0-37.0); Mean Platelet Volume 9.7 FL (9.5-12.2); Monocytes # (A) 0.93 X 10*3/uL (0.20-1.00); Monocytes % (A) 11.9 %; NRBC Per 100 WBC 0 X 10*3/uL (0.00-0.01); Neutrophils % (A) 44.6 %; Platelet Count 259 X 10*3/uL (140-440); RBC 4.48 X 10*6/uL (4.40-5.60); RDW 12.5 % (11.5-14.5); WBC 7.84 X 10*3/uL (4.50-10.00)
[2022-09-02 08:42] VITALS: RESP 16
[2022-09-02 08:56] LABS: ALT 71 U/L (10-49); AST 50 U/L (14-35); Albumin 3.4 d/dL (3.8-4.9); Albumin/Globulin Ratio 1.31 Ratio (1.60-3.17); Alkaline Phosphatase 84 U/L (41-126); BUN/Creat Ratio 14.89 Ratio (12.00-20.00); Blood Urea Nitrogen 13.4 mg/dL (9.0-27.0); Calcium 8.9 mg/dL (8.7-10.3); Carbon Dioxide 21.5 mmol/L (21.6-31.8); Chloride 107 mmol/L (96-109); Globulin 2.6 d/dL (1.6-3.3); Glucose 130 mg/dL (70-110); Potassium 4.1 mmol/L (3.5-5.5); Sodium 140 mmol/L (135-145); Total Bilirubin 1.7 mg/dL (0.3-1.2)
[2022-09-02 12:39] LABS: Glucose,Whole Blood 119 mg/dL (70-110)
--- NOTE | 2022-09-02 13:20 | P.DS ---
Providers Date of admission: 08/30/22 15:09 Expected date of discharge: 09/02/22 Attending physician: Yaya Sanchez Consults: 08/31/22 09:17 Consult Physician Routine Consulting Provider: Erika Jorge Consult Reason/Comments: medical management Do you want consulting provider notified?: Yes Primary care physician: Fly Madrigal Hospital Course: Discharge diagnosis 1. Acute cholecystitis with gallbladder perforation and bile leak status post laparoscopic cholecystectomy Hospital course This is a 57-year-old male who presented with right upper quadrant abdominal pain.Gallbladder ultrasound had shown a contracted 2 cm gallstone in the gallbladder lumen with a positive Restrepo sign. Patient is admitted to the hospital to acute cholecystitis. He did have elevated white count and lactic acid level. Patient is status post laparoscopic cholecystectomy for acute cholecystitis with gallbladder perforation and bile leak. Patient's abdominal pain is controlled. He is tolerating diet. He is afebrile. He is having flatus. He has been up and ambulating. Incision sites are clean dry and intact. Patient will be discharged with antibiotics and SANDRA drain. He is stable for discharge. Please refer to chart for any further details. Physician Golf Teacher note has been reviewed by physician. Signing provider agrees with the documented findings, assessment, and plan of care. Patient Condition at Discharge: Stable Plan - Discharge Summary New Discharge Prescriptions: New metroNIDAZOLE [Flagyl] 500 mg PO TID 10 Days #30 tab Levofloxacin [Levaquin] 500 mg PO DAILY 10 Days #10 tab oxyCODONE HCL [OxyIR] 5 mg PO Q6H PRN 3 Days #12 tab PRN Reason: Pain Acetaminophen Tab [Tylenol Tab] 650 mg PO Q4H PRN #30 tablet PRN Reason: Pain Continue lisinopriL [Zestril] 5 mg PO DAILY Ibuprofen [Motrin] 800 mg PO BID PRN PRN Reason: Pain metFORMIN HCL [Glucophage] 500 mg PO DAILY Discontinued Naproxen [EC-Naproxen] 500 mg PO Q12H PRN PRN Reason: Pain Discharge Medication List lisinopriL [Zestril] 5 mg PO DAILY 04/10/22 [History] metFORMIN HCL [Glucophage] 500 mg PO DAILY 04/10/22 [History] Ibuprofen [Motrin] 800 mg PO BID PRN 08/30/22 [History] Acetaminophen Tab [Tylenol Tab] 650 mg PO Q4H PRN #30 tablet 09/02/22 [Rx] Levofloxacin [Levaquin] 500 mg PO DAILY 10 Days #10 tab 09/02/22 [Rx] metroNIDAZOLE [Flagyl] 500 mg PO TID 10 Days #30 tab 09/02/22 [Rx] oxyCODONE HCL [OxyIR] 5 mg PO Q6H PRN 3 Days #12 tab 09/02/22 [Rx] Follow up Appointment(s)/Referral(s): Rohan Bill MD [Primary Care Provider] - 1-2 days Yaya Sanchez MD [STAFF PHYSICIAN] - 1 Week Activity/Diet/Wound Care/Special Instructions: No driving while taking OxyIR No lifting over 10 pounds Shower daily. No soaking or tub baths for 2 weeks Very light activity until you are reevaluated at your follow up appointment with your surgeon Keep a log of SANDRA drain output and bring with you to your follow-up appointment Milk/strip drains 2-3 times a day Discharge Disposition: HOME SELF-CARE
--- NOTE | 2022-09-02 13:50 | P.PN ---
Subjective Progress Note Date: 09/02/22 patient is a 57-year-old gentleman with past medical history significant for diabetes mellitus who presented to the ER yesterday because of right upper quadrant abdominal pain. Patient stated that he was working in when after drinking a cup of coffee started having right upper quadrant abdominal pain, pa in was so severe that he immediately called EMS. There was no complain of any nausea or vomiting. No complain of fever or chills. Patient came to the ER, gallbladder ultrasound showed a contracted 2 cm gallstone in the gallbladder lumen with a positive Restrepo sign. Patient was admitted to surgery 09/01. Patient seen and examined. States he feels much better abdominal pain has resolved 09/02. Patient seen and examined. Blood pressure is controlled, currently normotensive, patient medically stable for discharge REVIEW OF SYSTEMS: CONSTITUTIONAL: No fever, no malaise,. CARDIOVASCULAR: No chest pain, no palpitations, no syncope. PULMONARY: No shortness of breath, no cough, GASTROINTESTINAL: No diarrhea, no nausea, no vomiting, no abdominal pain. NEUROLOGICAL: No headaches, no weakness, PHYSICAL EXAMINATION: GENERAL: The patient is alert and oriented x3, not in any acute distress. Well developed, well nourished. HEENT: Pupils are round and equally reacting to light. EOMI. No scleral icterus. No conjunctival pallor. Normocephalic, atraumatic. No pharyngeal erythema. No thyromegaly. CARDIOVASCULAR: S1 and S2 present. No murmurs, rubs, or gallops. PULMONARY: Chest is clear to auscultation, no wheezing or crackles. ABDOMEN: Soft, nontender, nondistended, normoactive bowel sounds. No palpable organomegaly. Laparoscopic surgical incision seen MUSCULOSKELETAL: No joint swelling or deformity. EXTREMITIES: No cyanosis, clubbing, or pedal edema. NEUROLOGICAL: Gross neurological examination did not reveal any focal deficits. SKIN: No rashes. Assessment and plan Acute cholecystitis [id number] diabetes mellitus Monitor vital signs Monitor CBC Monitor CMP Status post lap [place] Continue pain management per surgery Drain management per surgery Continue IV fluids Continue sliding scale insulin for now Can be discharged back on home meds at discharge Labs and medication were reviewed.. Continue same treatment. Continue with symptomatic treatment. Resume home medication. Monitor labs and vitals. DVT and GI prophylaxis. Further recommendations as per clinical course of the patient Objective - Vital Signs Vital signs: Vital Signs Temp 97.7 F 09/02/22 07:00 Pulse 81 09/02/22 08:00 Resp 16 09/02/22 08:00 BP 137/97 09/02/22 07:00 Pulse Ox 98 09/02/22 07:00 FiO2 Intake & Output 09/01/22 09/02/22 09/02/22 18:59 06:59 18:59 Intake Total 1362 1542 Output Total 500 35 Balance 862 -35 1542 Intake: Oral 1362 1542 Output: Drainage 35 Right Anterior Abdomen 35 Urine 500 Other: # Voids 3 2 - Labs CBC & Chem 7: 09/02/22 05:16 09/02/22 05:16 Labs: Abnormal Lab Results - Last 24 Hours (Table) 09/01/22 09/01/22 09/01/22 Range/Units 12: 17:46 20:26 Carbon Dioxide (21.6-31.8) mmol/L Glucose (70-110) mg/dL POC Glucose (mg/dL) 189 H 136 H 202 H (70-110) mg/dL Total Bilirubin (0.3-1.2) mg/dL AST (14-35) U/L ALT (10-49) U/L Total Protein (6.2-8.2) d/dL Albumin (3.8-4.9) d/dL Albumin/Globulin Ratio (1.60-3.17) Ratio 09/02/22 09/02/22 Range/Units 05:16 06:33 Carbon Dioxide 21.5 L (21.6-31.8) mmol/L Glucose 130 H (70-110) mg/dL POC Glucose (mg/dL) 137 H (70-110) mg/dL Total Bilirubin 1.7 H (0.3-1.2) mg/dL AST 50 H (14-35) U/L ALT 71 H (10-49) U/L Total Protein 6.0 L (6.2-8.2) d/dL Albumin 3.4 L (3.8-4.9) d/dL Albumin/Globulin Ratio 1.31 L (1.60-3.17) Ratio Microbiology - Last 24 Hours (Table) 08/30/22 15:40 Blood Culture - Preliminary Blood 08/30/22 15:55 Blood Culture - Preliminary Blood
[2022-09-02 15:46] VITALS: BP 116/78; PULSE 89; TEMP 98.5
== END 2022-09-02 16:15 | disposition home or self-care (01) ==
LOC: EC 12:07 → 6NMEDSUR 15:09
PROVIDERS: ADMIT Surgery; ATTEND Surgery
DX: K80.12 Calculus of gallbladder with acute and chronic cholecystitis without obstruction (principal); K82.A2 Perforation of gallbladder in cholecystitis; K65.3 Choleperitonitis; E87.20 Acidosis, unspecified; E11.9 Type 2 diabetes mellitus without complications; N20.0 Calculus of kidney; K76.0 Fatty (change of) liver, not elsewhere classified; Z79.84 Long term (current) use of oral hypoglycemic drugs; Z79.899 Other long term (current) drug therapy; Z88.7 Allergy status to serum and vaccine; Z87.891 Personal history of nicotine dependence; Z83.3 Family history of diabetes mellitus; Z82.49 Family history of ischemic heart disease and other diseases of the circulatory system
CPT/HCPCS: 47562; 96376 ×2; 96365; 96366; 96361; 96375; 99285; 36415; 93005; 88304; 80053 ×4; 83605; 83690; 84484; 85025 ×4; 85610; 85730; 81003; 87040; 83036; 76705; 74177; G0378 ×4; J2543 ×4; J2250; J0330; J1100; J2710; J2405; J1650 ×2; J3010; J1170 ×4; J0131 ×2; J1885 ×3; J2704; C9113; Q9967; J2001